=== PATIENT | male | born 1975 | race Caucasian/White ===

== ENCOUNTER 2024-02-15 20:07 | Emergency (ER) | payer SELFPAY ==
[2024-02-15 20:18] VITALS: BP 147/112
== END 2024-02-15 20:40 | disposition left against medical advice (07) ==
LOC: EMR 20:07
PROVIDERS: EMERGENCY PHYSICIAN Emergency Medicine
DX: R07.89 Other chest pain (principal); Z53.21 Procedure and treatment not carried out due to patient leaving prior to being seen by health care provider
CPT/HCPCS: 93005

== ENCOUNTER 2024-05-05 22:42 | Emergency (ER) | payer SELFPAY ==
[2024-05-05 22:46] VITALS: BP 154/110
== END 2024-05-06 01:34 | disposition left against medical advice (07) ==
LOC: EMR 22:42
PROVIDERS: EMERGENCY PHYSICIAN Emergency Medicine
DX: S61.012A Laceration without foreign body of left thumb without damage to nail, initial encounter (principal); W26.0XXA Contact with knife, initial encounter
CPT/HCPCS: 73140

== ENCOUNTER 2024-06-16 08:52 | Emergency (ER) | payer MEDICARE, SELFPAY ==
[2024-06-16] VITALS (7 sets, daily range): BP systolic 135–152; BP diastolic 94–114; BMI 30.5
--- NOTE | 2024-06-16 09:22 | EDRN ---
Alex FRANCOIS in room w/ pt.
--- NOTE | 2024-06-16 09:38 | ED.GENMED ---
History of Present Illness
General
Chief Complaint: Abdominal Symptoms
Source: patient
Time Seen by Provider: 06/16/24 09:18
History of Present Illness
History of Present Illness:
48yoM with a history of alcohol abuse presenting for evaluation of chest and abdominal discomfort. Patient reports several weeks of chest pain. He reports a central stabbing sensation that occurs about every 30-45 seconds and lasts about a second at
a time. Nothing seems to make the pain better or worse. The pain has become more severe over the past 3 days. He also reports abdominal pain and bloating primarily in the epigastric region. He states his abdomen feels very distended after eating. He
states it 'feels like something is injured inside.' His symptoms are making it difficult for him to sleep. Patient had a recent surgery on his left thumb 18 days ago and had a tendon repair. He was prescribed Vicodin which he believes may have made
his symptoms worse. Last dose was last week. He admits to daily alcohol use. He estimates drinking 8 ounces of scotch daily. Last drink yesterday afternoon. His symptoms improve temporarily while drinking alcohol. He reports feeling shaky currently.
No history of alcohol withdrawal. He expresses interest in rehab.
Phy Exam
General Physical Exam
General Presentation: well appearing and no apparent distress
General age: appears stated age
General Skin: warm and dry
General Habitus: normal
General Mental: alert
Cardiovascular Exam
Cardiovascular Exam: regular rate/rhythm, no edema and no murmur
Pulmonary Exam
Pulmonary Exam: lungs clear, no respiratory distress, no crackles and no wheezing
Gastrointestinal Exam
Gastrointestinal Exam: soft, non distended and tender (Mild tenderness in epigastrium. No rebound or guarding. )
Skin Exam
Skin Exam: normal color and warm/dry
Psychiatric Exam
Psychiatric Exam: anxious
Course
Orders/Labs/Results
Orders:
Orders
06/16/24 08:55
ECG [Electrocardiogram (*1)] Urgent
Reason for Study: Chest Pain
06/16/24 08:56
EKG- Treatment ONCE
06/16/24 09:36
Cardiac Monitoring- Treatment ONCE
0.9% Sodium Chloride 1000 ml [Nss] 1,000 ml IV BOLUS
Famotidine [Pepcid] 20 mg IV NOW STA
Ondansetron Injectable [Zofran] 4 mg IV NOW STA
Pantoprazole [Protonix IV] 40 mg IV NOW STA
06/16/24 09:37
CR Chest - 2 Views Urgent
Comment:
Reason For Exam: CP
06/16/24 10:21
Complete Blood Count/With Diff Urgent
Comprehensive Metabolic Panel Urgent
D-Dimer Urgent
Lipase Urgent
Troponin I Urgent
06/16/24 11:11
CT Pe/abd/pel W Urgent
Comment:
Reason For Exam: Chest pain, epigastric pain, elevated D-dimer
Abnormal Lab Results
06/16/24
10:21
MCH 31.7 H pg
(27.0-31.0)
Absolute Monos (auto) 0.7 H 10^3/uL
(0.1-0.6)
Monocytes % 11.2 H %
(1.7-9.3)
D-Dimer 0.80 H ug/mlFEU
(0.00-0.50)
Calcium 10.3 H mg/dl
(8.4-10.2)
Total Bilirubin 2.2 H mg/dl
(0.2-1.3)
AST 113 H U/L
(17-59)
ALT 112 H U/L
(0-50)
Lipase 372 H U/L
(23-300)
06/16/24 10:21
06/16/24 10:21
Vital Signs
Initial and Last Documented VS:
Initial Vital Signs
Temp Pulse Resp BP Pulse Ox
98.2 F 85 18 152/107 97
06/16/24 08:54 06/16/24 08:54 06/16/24 08:54 06/16/24 08:54 06/16/24 08:54
Last Documented Vital Signs
Temp Pulse Resp BP Pulse Ox
98.2 F 80 11 149/114 97
06/16/24 08:54 06/16/24 14:45 06/16/24 14:45 06/16/24 14:00 06/16/24 14:45
MDM/Problems Addressed
Differential Diagnosis Includes:
48yoM here with intermittent stabbing chest pain x several weeks that is worsening. Also having epigastric pain and abdominal bloating. Hx of daily alcohol use. He is mildly hypertensive with otherwise normal vital signs. He is acutely nontoxic
appearing. No signs of peritonitis on abdominal exam. Differential diagnosis includes but is not limited to: Esophagitis, gastritis, PUD, pancreatitis, biliary pathology, ACS, PE
Initial ED plan: Check cardiac labs, lipase, D-dimer, EKG, and chest x-ray. Will order CT AP vs. CT CAP based on D-dimer results. IV Pepid, Protonix, Zofran, and fluid bolus for symptoms.
*EKG
Interpreted by ED Provider?: Yes
EKG Intrepretation Date: 06/16/24
Heart Rate: 92
Rate: normal
Rhythm: sinus
[place]: normal axis
Interval: normal interval
QRS Pattern: normal QRS
Ischemia: no ischemia
*Critical Care Note
Total Time (30-74mins, 75-104mins- exclusive of procedures): Not Applicable
Update Note
Update Note:
Labs reveal a mild transaminitis as well as a mildly elevated lipase. Lipase 372 which is <3x ULN. Pancreas appears normal on CT. Patient does not meet diagnostic criteria for pancreatitis. D-dimer elevated and CTA chest also added which is
negative for pulmonary embolism. EKG shows normal sinus rhythm without ischemic changes and troponin is normal. [employer] product support sales representative met with patient. Patient not interested in inpatient detox/rehab at this time. Vitals remain stable, no evidence
of severe withdrawal on multiple reassessments. Patient requesting Librium taper and script was provided. Scripts also provided for pantoprazole and Carafate for possible gastritis. Advised close PCP and GI f/u. Strict ED return precautions
discussed. He was discharged in stable condition.
ED Attending Note
-
Portions of this chart may have been created with voice recognition software.� Occasional wrong word or��sound alike� substitutions may have occurred due to the inherent limitations of voice recognition software.
Discharge Plan
Departure
Patient Disposition: Home (Routine Discharge)
Date of Disposition: 06/16/24
Time of Disposition: 14:44
Patient with high blood pressure during this ER visit?: Yes
Discharge Problem:
Epigastric pain, Alcohol withdrawal
Instructions: Alcohol withdrawal, Abdominal Pain
Prescriptions:
New
sucralfate [Carafate] 1 gram tablet
1 g PO QID Qty: 40 0RF
pantoprazole 40 mg tablet,delayed release (DR/EC)
40 mg PO DAILY Qty: 30 0RF
chlordiazepoxide HCl 25 mg capsule
See Rx Instructions .ROUTE .COMPLEX Qty: 10 0RF
Rx Instructions:
Day 1: 25mg PO Q6 hours. Day 2: 25mg PO Q8 hours. Day 3: 25mg PO Q12 hours. Day 4: 25mg PO at nighttime.
Referrals:
Bruce Mehta MD [Family Provider] -
Nita Ho MD [Active] -
Activity Restrictions/Additional Instructions:
Take Librium as prescribed. Do not mix this with alcohol. Take pantoprazole and Carafate for your stomach.
Please call today to schedule a follow-up with your family doctor, gastroenterology, and the outpatient D&A resources provided.
Return to the ER immediately with any new or worsening symptoms.
Interventions
Interventions:
*Risk Screen - Suicide Last Done: 06/16/24 08:54
*General Assessment Last Done: 06/16/24 08:54
*Neglect/Abuse Screening Last Done: 06/16/24 08:54
ED- Fall Risk Assessment Last Done: 06/16/24 10:44
*ED COVID-19 Vaccine History Last Done: 06/16/24 08:54
*Nursing Disposition Last Done: 06/16/24 15:08
[id number] Assessment Last Done: 06/16/24 10:44
Discharge Date and Time
Discharge Date/Time: 06/16/24 15:08
Print Language: SPANISH
[2024-06-16] MEDS: NSS 1000 IV (10:31)
[2024-06-16] MEDS: PEPCID 20 MG IV (10:32)
[2024-06-16] MEDS: ZOFRAN 4 MG IV (10:32)
[2024-06-16] MEDS: PROTONIX IV 40 MG IV (10:32)
[2024-06-16 10:43] LABS: % Basophils 1.2 % (0-2); % Immature Granulocytes 0.3 % (0-0.5); % Lymphocytes 23.7 % (20.5-51.1); % Monocytes 11.2 % (1.7-9.3); % Neutrophils 61.6 % (42.2-75.2); Absolute Basophils 0.1 10^3/uL (0-0.2); Absolute Eosinophils 0.1 10^3/uL (0-0.7); Absolute Lymphocytes 1.4 10^3/uL (1.2-3.4); Absolute Monocytes 0.7 10^3/uL (0.1-0.6); Absolute Neutrophils 3.6 10^3/uL (1.4-6.5); Hematocrit 43.4 % (39.0-52.0); Hemoglobin 15.8 g/dL (13.0-18.0); Mean Corp Hgb Conc. 36.4 g/dL (33.0-37.0); Mean Corpuscular Hgb 31.7 pg (27.0-31.0); Mean Corpuscular Volume 87.1 fL (80.0-94.0); Mean Platelet Volume 8.3 fL (7.4-10.4); Nucleated Red Blood Cells % 0 % (-); Platelet Count 279 10^3/uL (130-400); Red Blood Cell Count 4.98 10^6/uL (4.70-6.10); White Blood Cell Count 5.9 10^3/uL (4.8-10.8)
--- NOTE | 2024-06-16 10:51 | EDRN ---
Pt is also feeling a lot of nausea at this time.
[2024-06-16 11:00] LABS: ALT (SGPT) 112 U/L (0-50); AST (SGOT) 113 U/L (17-59); Albumin 4.7 g/dl (3.5-5.0); Alkaline Phosphatase 84 U/L (38-126); Blood Urea Nitrogen 13 mg/dl (9-20); Calcium 10.3 mg/dl (8.4-10.2); Carbon Dioxide 24 mmol/L (22-30); Chloride 104 mmol/L (98-107); Estimated Creatinine Clearance > 125 ml/min; Glucose 95 mg/dl (70-99); Lipase 372 U/L (23-300); Potassium 4.1 mmol/L (3.5-5.1); Sodium 138 mmol/L (135-145); Total Bilirubin 2.2 mg/dl (0.2-1.3); Total Protein 7.5 g/dl (6.3-8.2); eGFR > 60.00
[2024-06-16 11:11] LABS: Troponin I < 0.012 ng/ml
--- NOTE | 2024-06-16 13:31 | EDRN ---
Zurdo PA in to speak w/ pt.
--- NOTE | 2024-06-16 13:54 | EDRN ---
Augustina Francicso rep in room w/pt at this time.
== END 2024-06-16 15:08 | disposition home or self-care (01) ==
LOC: EMR 08:52
PROVIDERS: Physician Assistant; EMERGENCY PHYSICIAN Emergency Medicine; FAMILY PHYSICIAN Family Medicine
DX: R07.89 Other chest pain (principal)
CPT/HCPCS: 99284; 96374; 96375; 96361; 71046; 71275; 74177; 80053; 83690; 84484; 85025; 85379; 93005; Q9967

== ENCOUNTER 2024-10-05 17:12 | Emergency (ER) | payer MEDICARE, SELFPAY ==
[2024-10-05 17:17] VITALS: BP 154/99
--- NOTE | 2024-10-05 18:24 | ED.GENMED ---
History of Present Illness
<KEN Arrieta - Last Filed: 10/05/24 20:23>
General
Chief Complaint: Alcohol Problem
Source: patient and significant other
Exam Limitations: none
Time Seen by Provider: 10/05/24 18:02
History of Present Illness
History of Present Illness:
This is a 49 year old male that comes in with c/o alcohol abuse. states that he normally drinks a bottle of Scotch daily. States that he doesn't know how he got where he is with his abuse. States that he has not been able to eat or drink as he is
vomiting. States that he has abd pain, nausea, vomiting, and he feel like he can't focus. States that he did drink a 1/2 of bottle today. Denies any fever, chills, chest pain, SOB, diarrhea, headache, dizziness, urinary burning.
Past History
<KEN Arrieta - Last Filed: 10/05/24 20:23>
Past History
ED Past Medical History: None; Negative Asthma, HTN or Hypercholesterolemia
ED Past Surgical History: Other (Hernia repair)
Social History
Tobacco: Non-smoker
Alcohol: Daily (Scotch one bottle)
Personal:
Living: with family
Review of Systems
<KEN Arrieta - Last Filed: 10/05/24 20:23>
Review of Systems
All Other Systems: ROS reviewed and negative except as documented in HPI and ROS
Constitutional: Reports no symptoms; Denies fever or chills
EENT: Reports no symptoms
Respiratory: Reports no symptoms; Denies cough or trouble breathing
Cardiac: Reports no symptoms; Denies chest pain
ABD/GI: Reports abdominal pain, nausea and vomiting; Denies diarrhea
: Reports no symptoms; Denies dysuria, frequency or urgency
Musculoskeletal: Reports no symptoms
Skin: Reports no symptoms
Neurological: Reports other (Feels like he can't focus); Denies dizzy or headache
Psychiatric: Reports no symptoms
Phy Exam
<KEN Arrieta - Last Filed: 10/05/24 20:23>
General Physical Exam
General Presentation: no apparent distress
General age: appears stated age
General Skin: warm and dry
General Habitus: normal
General Mental: alert and tearful
General Hydration: dry mucous membranes
ENT Exam
ENT Exam: TM's normal, pharynx normal, neck supple and other (tongue coated with white)
Eye Exam
Eye Exam: EOMI
Cardiovascular Exam
Cardiovascular Exam: regular rate/rhythm, no edema, no murmur and normal peripheral pulses
Pulmonary Exam
Pulmonary Exam: lungs clear, no respiratory distress, no rales, chest non tender, no crackles, no rhonchi, no wheezing and no cough
Gastrointestinal Exam
Gastrointestinal Exam: normal bowel sounds, non tender, soft, no organomegaly, no pulsatile mass and non distended
Musculoskeletal Exam
Musculoskeletal Exam: full ROM and no edema
Skin Exam
Skin Exam: normal color, warm/dry, no rash and no petechia
Psychiatric Exam
Psychiatric Exam: anxious
Scores
<KEN Arrieta - Last Filed: 10/05/24 20:23>
Withdrawal Assessment of Alcohol
Withdrawal Assessment Completed?: Yes
Nausea and Vomiting: Constant nausea, frequent dry heaves and vomiting
Tactile Disturbances: None
Tremor: Not visible, but can be felt fingertip to fingertip (Jumping occasionally)
Auditory Disturbances: Not present
Paroxysmal Sweats: No sweat visible
Visual Disturbances: Not present
Anxiety: Mild anxiety
Headache, Fullness in Head: Not present
Agitation: Normal activity
Orientation and clouding of sensorium: Oriented and can do serial additions
Total CIWA Score: 9
Alcohol Withdrawal Medication Recommendation: Equal to MSAS Score 5-7. Lorazepam 1mg IV or PO NOW & re-assess q2hrs
<Slim Cavanaugh DO - Last Filed: 10/05/24 23:14>
Withdrawal Assessment of Alcohol
Total CIWA Score: 9
Alcohol Withdrawal Medication Recommendation: Equal to MSAS Score 5-7. Lorazepam 1mg IV or PO NOW & re-assess q2hrs
Course
<KEN Arrieta - Last Filed: 10/05/24 20:23>
Orders/Labs/Results
Orders:
Orders
10/05/24 18:23
0.9% Sodium Chloride 1000 ml [Nss] 1,000 ml IV BOLUS
Lorazepam [Ativan] 0.5 mg IV NOW STA
10/05/24 18:26
Ondansetron Injectable [Zofran] 4 mg IV NOW STA
Pantoprazole [Protonix IV] 40 mg IV NOW STA
10/05/24 18:28
Alcohol Urgent
Complete Blood Count/With Diff Urgent
Comprehensive Metabolic Panel Urgent
Lipase Urgent
Abnormal Lab Results
10/05/24
18:28
MCH 32.1 H pg
(27.0-31.0)
Carbon Dioxide 20 L mmol/L
(22-30)
Total Bilirubin 1.8 H mg/dl
(0.2-1.3)
AST 152 H U/L
(17-59)
ALT 145 H U/L
(0-50)
Lipase 321 H U/L
(23-300)
10/05/24 18:28
10/05/24 18:28
carbon dioxide slightly low. Total peña and AST/ALT elevation (elevation was noted on prior labs), Lipase slightly elevated. Alcohol level 240
Vital Signs
Initial and Last Documented VS:
Initial Vital Signs
Temp Pulse Resp BP Pulse Ox
98.0 F 103 20 154/99 98
10/05/24 17:17 10/05/24 17:17 10/05/24 17:17 10/05/24 17:17 10/05/24 17:17
Last Documented Vital Signs
Temp Pulse Resp BP Pulse Ox
98.0 F 89 18 132/94 99
10/05/24 17:17 10/05/24 19:50 10/05/24 19:50 10/05/24 19:50 10/05/24 19:50
<Slim Cavanaugh, DO - Last Filed: 10/05/24 23:14>
Orders/Labs/Results
Orders:
Orders
10/05/24 18:23
0.9% Sodium Chloride 1000 ml [Nss] 1,000 ml IV BOLUS
Lorazepam [Ativan] 0.5 mg IV NOW STA
10/05/24 18:26
Ondansetron Injectable [Zofran] 4 mg IV NOW STA
Pantoprazole [Protonix IV] 40 mg IV NOW STA
10/05/24 18:28
Alcohol Urgent
Complete Blood Count/With Diff Urgent
Comprehensive Metabolic Panel Urgent
Lipase Urgent
Abnormal Lab Results
10/05/24
18:28
MCH 32.1 H pg
(27.0-31.0)
Carbon Dioxide 20 L mmol/L
(22-30)
Total Bilirubin 1.8 H mg/dl
(0.2-1.3)
AST 152 H U/L
(17-59)
ALT 145 H U/L
(0-50)
Lipase 321 H U/L
(23-300)
10/05/24 18:28
10/05/24 18:28
Vital Signs
Initial and Last Documented VS:
Initial Vital Signs
Temp Pulse Resp BP Pulse Ox
98.0 F 103 20 154/99 98
10/05/24 17:17 10/05/24 17:17 10/05/24 17:17 10/05/24 17:17 10/05/24 17:17
Last Documented Vital Signs
Temp Pulse Resp BP Pulse Ox
98.0 F 89 18 132/94 99
10/05/24 17:17 10/05/24 19:50 10/05/24 19:50 10/05/24 19:50 10/05/24 19:50
<KEN Arrieta - Last Filed: 10/05/24 20:23>
MDM/Problems Addressed
Differential Diagnosis Includes:
Alcohol abuse, Alcohol intoxication,
MDM/Problems Addressed:
This is a 49 year old male that comes in with c/o alcohol abuse. States that he wants D-tox.
Patient spoke with Ramana and they will make placement for patient at [facility]. Will check labs, Medicate for nausea and GERD, Give IV fluids
Back into see patient. Patient is much more relaxed. Spoke with Ramana and patient has been Excepted at [facility]. Will discharge patent to [facility].
Chronic conditions affecting care:
NA
Acute Exacerbation and/or Progression of Chronic Illness:
NA
<KEN Arrieta - Last Filed: 10/05/24 20:23>
*Pulse Oximetry
Patient hypoxic: no
*EKG
Interpreted by ED Provider?: NA
Rate: EKG- N/A
*[employer] Interpretation
Rate: [employer]- N/A
*Critical Care Note
Total Time (30-74mins, 75-104mins- exclusive of procedures): Not Applicable
ED Attending Note
<KEN Arrieta - Last Filed: 10/05/24 20:23>
-
Portions of this chart may have been created with voice recognition software.� Occasional wrong word or��sound alike� substitutions may have occurred due to the inherent limitations of voice recognition software.
<Slim Cavanaugh, DO - Last Filed: 10/05/24 23:14>
ED Attending Note
Patient seen and examined by attending physician: Yes
ED Attending Note:
I reviewed and agree with history treatment plan by Joanne Cox. My exam revealed 49-year-old male in no acute distress. Stable for transfer to rehab facility. Whitish area seen on tongue, suspect due to patient's vomiting. Doubt thrush.
Discharge Plan
Departure
Patient Disposition: Other
Date of Disposition: 10/05/24
Time of Disposition: 20:04
Patient with high blood pressure during this ER visit?: Yes
Condition: Good
Covid-19: Not Applicable
Discharge Problem:
Alcohol intoxication, Alcohol abuse
Instructions: Alcohol Withdrawal (DC), Alcohol Use Disorder (DC), BLOOD PRESSURE
Prescriptions:
No Action
sucralfate [Carafate] 1 gram tablet
1 g PO QID Qty: 40 0RF
pantoprazole 40 mg tablet,delayed release (DR/EC)
40 mg PO DAILY Qty: 30 0RF
chlordiazepoxide HCl 25 mg capsule
See Rx Instructions .ROUTE .COMPLEX Qty: 10 0RF
Rx Instructions:
Day 1: 25mg PO Q6 hours. Day 2: 25mg PO Q8 hours. Day 3: 25mg PO Q12 hours. Day 4: 25mg PO at nighttime.
Referrals:
Bruce Mehta MD [Family Provider] -
Activity Restrictions/Additional Instructions:
As discussed, your blood work shows that your liver enzymes and your Lipase are elevation. This should come down as you are off the alcohol. Please follow up as directed by [facility]. IF YOU HAVE ANY OTHER CONCERNS PLEASE RETURN TO THE EMERGENCY ROOM.
Interventions
Interventions:
*Risk Screen - Suicide Last Done: 10/05/24 17:17
*General Assessment Last Done: 10/05/24 17:17
*Neglect/Abuse Screening Last Done: 10/05/24 17:17
ED- Fall Risk Assessment Last Done: 10/05/24 19:16
*Nursing Disposition Last Done: 10/05/24 20:26
ED- Neurological Assessment Last Done: 10/05/24 19:16
ED-Psychological Assessment Last Done: 10/05/24 19:16
Discharge Date and Time
Discharge Date/Time: 10/05/24 20:27
Print Language: VENEZUELAN
[2024-10-05] MEDS: ATIVAN 0.5 MG IV (18:43)
[2024-10-05] MEDS: ZOFRAN 4 MG IV (18:43)
[2024-10-05] MEDS: PROTONIX IV 40 MG IV (18:43)
[2024-10-05] MEDS: NSS 1000 IV (18:44)
[2024-10-05 18:47] LABS: % Basophils 0.6 % (0-2); % Eosinophils 0.6 % (0-6); % Immature Granulocytes 0.2 % (0-0.5); % Lymphocytes 29.5 % (20.5-51.1); % Monocytes 8.6 % (1.7-9.3); % Neutrophils 60.5 % (42.2-75.2); Absolute Lymphocytes 1.5 10^3/uL (1.2-3.4); Absolute Monocytes 0.4 10^3/uL (0.1-0.6); Absolute Neutrophils 3.1 10^3/uL (1.4-6.5); Hematocrit 48.3 % (39.0-52.0); Hemoglobin 17.3 g/dL (13.0-18.0); Mean Corp Hgb Conc. 35.8 g/dL (33.0-37.0); Mean Corpuscular Hgb 32.1 pg (27.0-31.0); Mean Corpuscular Volume 89.6 fL (80.0-94.0); Nucleated Red Blood Cells % 0 % (-); Platelet Count 267 10^3/uL (130-400); Red Blood Cell Count 5.39 10^6/uL (4.70-6.10); Red Cell Dist. Width 12.9 % (11.5-14.5); White Blood Cell Count 5.1 10^3/uL (4.8-10.8)
[2024-10-05 19:08] LABS: ALT (SGPT) 145 U/L (0-50); AST (SGOT) 152 U/L (17-59); Alcohol 240 mg/dl; Alkaline Phosphatase 115 U/L (38-126); Blood Urea Nitrogen 15 mg/dl (9-20); Calcium 9.3 mg/dl (8.4-10.2); Carbon Dioxide 20 mmol/L (22-30); Chloride 99 mmol/L (98-107); Glucose 90 mg/dl (70-99); Lipase 321 U/L (23-300); Potassium 4.5 mmol/L (3.5-5.1); Sodium 141 mmol/L (135-145); Total Bilirubin 1.8 mg/dl (0.2-1.3); Total Protein 8.1 g/dl (6.3-8.2); eGFR > 60.00
[2024-10-05 19:50] VITALS: BP 132/94
== END 2024-10-05 20:27 | disposition other institution (70) ==
LOC: EMR 17:12
PROVIDERS: Clinical Nurse Specialist Family Health; EMERGENCY PHYSICIAN Emergency Medicine; FAMILY PHYSICIAN Family Medicine
DX: F10.129 Alcohol abuse with intoxication, unspecified (principal); Y90.8 Blood alcohol level of 240 mg/100 ml or more
CPT/HCPCS: 96374; 96375; 96361; 99284; 80053; 82077; 83690; 85025

== ENCOUNTER 2025-02-04 13:08 | Inpatient (IN) | payer OTHER, SELFPAY ==
--- NOTE | 2025-02-03 23:44 | ED.GENMED ---
History of Present Illness
<DO Morris Shelby Last Filed: 02/05/25 22:00>
General
Chief Complaint: Crisis Evaluation
Source: patient, significant other, family and police
Exam Limitations: none
Time Seen by Provider: 02/03/25 23:10
Nursing documentation reviewed up to this point in time: agreed with
History of Present Illness
History of Present Illness:
49-year-old male presents to the emergency department via police escort for threatening suicide. Patient admits to binge drinking for the last 2 weeks. He states he has been drinking 'a bottle per day '. Patient was complaining of chest pain and
left arm pain. Significant other states that he has been having possible absence seizure's while at home. Patient has also been hiccuping for the last few days. Patient denies fever, chills, current chest pain, current shortness of breath.
Past History
<DO Morris Shelby Last Filed: 02/05/25 22:00>
Past History
ED Past Medical History: None; Negative Asthma, HTN or Hypercholesterolemia
ED Past Surgical History: Other (Hernia repair)
Social History
Tobacco: Non-smoker
Alcohol: Daily (Scotch one bottle)
Personal:
Living: with family
Phy Exam
<DO Morris Shelby Last Filed: 02/05/25 22:00>
General Physical Exam
General Presentation: moderate distress
General age: appears stated age
General Skin: warm and dry
General Habitus: normal
General Mental: alert, angry, anxious and appears intoxicated
General Hydration: appears well hydrated
ENT Exam
ENT Exam: EOMI, pharynx normal, neck supple and normocephalic
Eye Exam
Eye Exam: PERRL, cornea clear and conjunctiva normal
Cardiovascular Exam
Cardiovascular Exam: regular rate/rhythm, no edema, no murmur and normal peripheral pulses
Pulmonary Exam
Pulmonary Exam: lungs clear, no respiratory distress, no rales, no crackles, no rhonchi, no stridor, no wheezing and no cough
Gastrointestinal Exam
Gastrointestinal Exam: normal bowel sounds, non tender, soft, no organomegaly, no pulsatile mass and non distended
Neurological Exam
Neurological Exam: alert, oriented x3, no motor deficits and speech normal
Musculoskeletal Exam
Musculoskeletal Exam: full ROM and no edema
Skin Exam
Skin Exam: normal color, warm/dry, no rash and no petechia
Psychiatric Exam
Psychiatric Exam: normal mood/affect
Course
<Nick Tolentino, DO - Last Filed: 02/05/25 22:00>
Orders/Labs/Results
Orders:
Orders
02/03/25 23:23
Alcohol Urgent
Complete Blood Count/With Diff Urgent
Comprehensive Metabolic Panel Urgent
Lipase Urgent
Comment: ADDED
Magnesium Urgent
Comment: ADD ON
Phosphorus Urgent
Comment: ADD ON
02/03/25 23:46
Electrocardiogram (*1) Urgent
Reason for Study: Chest Pain
EKG- Treatment ONCE
Troponin I Urgent
02/03/25 23:54
Lorazepam [Ativan] 1 mg IV NOW STA
02/04/25 00:17
CT Abd/pelvis W Iv Cont Urgent
Comment:
Reason For Exam: ETOH, elevated transaminase
02/04/25 00:18
Add On- LAB Urgent
Tests Added?: lipase
02/04/25 00:25
CT Head W/o Iv Contrast Urgent
Reason For Exam: seizure
02/04/25 01:18
Diphenhydramine [Benadryl] 12.5 mg IV NOW STA
Metoclopramide [Reglan] 10 mg IV NOW STA
02/04/25 01:22
0.9% Sodium Chloride 1000 ml [Nss] 1,000 ml IV BOLUS
02/04/25 02:51
Consult Notification Routine
Specialty to Notify: Psychiatry
Date consulting provider notified: 02/04/25
Time consulting provider notified: 03:05
Notified:: Provider
Consult Psychiatry [PSYCHIATRY CONSULT] Urgent
Consulting Provider: Mojgan Harley
Was physician already notified: No
Reason for consult: SI, etoh
02/04/25 05:53
Chest [CR Chest - 2 Views ] Urgent
Comment: Pt fell at home. Reports right sided tenderness.
Reason For Exam: fall
02/04/25 Breakfast
Regular
At Your Request: Non-Participating
02/04/25 06:24
Lorazepam [Ativan] 1 mg IV NOW STA
02/04/25 07:53
Lorazepam [Ativan] 2 mg IV NOW STA
02/04/25 09:52
Alcohol Urgent
02/04/25 Lunch
Regular
At Your Request: Full Participation
Does patient need a safe tray?: Yes
02/04/25 10:11
Lorazepam [Ativan] 1 mg IV Q2HPRN PRN
02/04/25 10:14
0.9% Sodium Chloride [Nss (Preservative Free)] 0.5 ml IV Q2HPRN PRN
02/04/25 11:20
0.9% Sodium Chloride 1000 ml [Nss] 1,000 ml Mvi, Adult [Multivitamin] 10 ml Thiamine Injection 100 mg IV 100 mls/hr
02/04/25 12:55
Admit/Transfer Patient As Directed
Co-Sign Provider:
Level of Care: Inpatient admission
Assign to:: Telemetry
Physician / Group: robi king
Diagnosis: etOH w/d
Reason for Telemetry: Medication for Arrhythmia
Date to Stop Telemetry: 02/06/25
Time to Stop Telemetry: 11:00
Reason for Hospitalization: etOH w/d
Expected length of stay greater than two midnights?: Yes
ELOS- Estimated Length of Stay in days: 2
I certify the patient meets the requirements for IP care: Yes
PRN Pain Medication Management As Directed
May give lesser potent ordered pain med per pt: Yes
preference::
Protocol:: Medication orders for pain may be administered in a
manner that supports deferring to patient preference
when the pt is:
- Requesting an ordered lesser potent pain medication.
Least to most potent pain medications are defined
as: acetaminophen < NSAID < tramadol < opioids
(morphine, oxycodone, hydromorphone).
- Requesting a lesser dose of the same medication IF
ORDERED.
- Requesting a less intrusive route of administration
if both routes are prescribed by the provider (PO <
IV).
02/04/25 12:56
Code Status As Directed
Resuscitation Status: Full Code
02/04/25 13:00
Add On- LAB Urgent
Tests Added?: Phos, Mg levels
02/04/25 13:13
Phenobarbital Sodium [Phenobarbital] 260 mg 0.9% Sodium Chloride 100 ml [Nss] 100 ml IV NOW
02/04/25 18:56
0.9% Sodium Chloride [Nss (Preservative Free)] See Protocol IV PRN PRN
Enoxaparin Sodium [Lovenox] 40 mg SC QPM
FOLic ACID [Folvite] 1 mg 0.9% Sodium Chloride 50 ml [Nss] 50 ml IV DAILYPRN
Lorazepam [Ativan] 1 mg IV Q1HPRN PRN
Lorazepam [Ativan] 1 mg PO Q2HPRN PRN
Lorazepam [Ativan] 2 mg IV Q1HPRN PRN
Oxycodone [Roxicodone] 5 mg PO Q4HPRN PRN
Polyethylene Glycol Powder [Miralax] 17 grams PO DAILY
02/04/25 18:56
Activity As Directed
Activity Level: Ambulate
MSAS SCORE As Directed
MSAS Score 0-4: Repeat MSAS every 2 hours until 0-4 for three consecutive assessments, then every 4 hours x 48
hours.
MSAS Score 5-7: For MILD withdrawl symptoms. Repeat MSAS and RASS every 2 hours
MSAS Score 8-11: For MODERATE withdrawal symptoms. Repeat MSAS and RASS every 1 hour. Consider ICU or IMU
level of care.
MSAS Score > 11: For SEVERE withdrawal symptoms. Repeat MSAS and RASS every 1 hour. Notify provider, consider
ICU level of care.
MSAS Additional Instructions: If no improvement or no decrease in score from severe to moderate within 12
hours, consult psychiatry
MSAS Notify Provider: Notify provider if patient requires more than 10 mg of Lorazepam in eight hour period.
Vital Signs As Directed
Frequency: Per unit guidelines
DX Deep Vein Thrombosis Video Routine
02/04/25 20:00
Thiamine Injection 200 mg IV Q12
02/04/25 22:00
Phenobarbital Sodium [Phenobarbital] 97.5 mg IV TID
02/05/25 05:51
Comprehensive Metabolic Panel IN AM
Magnesium IN AM
02/05/25 08:00
FOLic ACID [Folvite] 1 mg PO DAILY
02/06/25 06:00
Comprehensive Metabolic Panel IN AM
02/06/25 11:00
DC Protocol for Telemetry ONCE
02/06/25 22:00
Phenobarbital [Luminal] 64.8 mg PO TID
02/07/25 06:00
Comprehensive Metabolic Panel IN AM
02/07/25 20:00
Thiamine HCl [Vitamin B1] 100 mg PO BID
02/08/25 06:00
Comprehensive Metabolic Panel IN AM
02/08/25 22:00
Phenobarbital [Luminal] 32.4 mg PO TID
Abnormal Lab Results
02/03/25
23:23
MCH 32.1 H pg
(27.0-31.0)
Absolute Lymphs (auto) 1.0 L 10^3/uL
(1.2-3.4)
Lymphocytes % 17.8 L %
(20.5-51.1)
Glucose 100 H mg/dl
(70-99)
Total Bilirubin 1.9 H mg/dl
(0.2-1.3)
AST 757 H* U/L
(17-59)
ALT 320 H U/L
(0-50)
Lipase 505 H U/L
(23-300)
Alcohol, Quantitative 463 H* mg/dl
02/03/25 23:23
02/03/25 23:23
Vital Signs
Initial and Last Documented VS:
Initial Vital Signs
Pulse Resp Pulse Ox
109 17 99
02/04/25 02:47 02/04/25 02:47 02/04/25 02:47
Last Documented Vital Signs
Temp Pulse Resp BP Pulse Ox
98.9 F 86 18 136/93 98
02/05/25 19:57 02/05/25 21:33 02/05/25 19:57 02/05/25 21:33 02/05/25 19:57
<Nik Romo MD - Last Filed: 02/04/25 13:44>
Orders/Labs/Results
Orders:
Orders
02/03/25 23:23
Alcohol Urgent
Complete Blood Count/With Diff Urgent
Comprehensive Metabolic Panel Urgent
Lipase Urgent
Comment: ADDED
Magnesium Urgent
Comment: ADD ON
Phosphorus Urgent
Comment: ADD ON
02/03/25 23:46
Electrocardiogram (*1) Urgent
Reason for Study: Chest Pain
EKG- Treatment ONCE
Troponin I Urgent
02/03/25 23:54
Lorazepam [Ativan] 1 mg IV NOW STA
02/04/25 00:17
CT Abd/pelvis W Iv Cont Urgent
Comment:
Reason For Exam: ETOH, elevated transaminase
02/04/25 00:18
Add On- LAB Urgent
Tests Added?: lipase
02/04/25 00:25
CT Head W/o Iv Contrast Urgent
Reason For Exam: seizure
02/04/25 01:18
Diphenhydramine [Benadryl] 12.5 mg IV NOW STA
Metoclopramide [Reglan] 10 mg IV NOW STA
02/04/25 01:22
0.9% Sodium Chloride 1000 ml [Nss] 1,000 ml IV BOLUS
02/04/25 02:51
Consult Notification Routine
Specialty to Notify: Psychiatry
Date consulting provider notified: 02/04/25
Time consulting provider notified: 03:05
Notified:: Provider
Consult Psychiatry [PSYCHIATRY CONSULT] Urgent
Consulting Provider: Mojgan Harley
Was physician already notified: No
Reason for consult: SI, etoh
02/04/25 05:53
Chest [CR Chest - 2 Views ] Urgent
Comment: Pt fell at home. Reports right sided tenderness.
Reason For Exam: fall
02/04/25 Breakfast
Regular
At Your Request: Non-Participating
02/04/25 06:24
Lorazepam [Ativan] 1 mg IV NOW STA
02/04/25 07:53
Lorazepam [Ativan] 2 mg IV NOW STA
02/04/25 09:52
Alcohol Urgent
02/04/25 Lunch
Regular
At Your Request: Full Participation
Does patient need a safe tray?: Yes
02/04/25 10:11
Lorazepam [Ativan] 1 mg IV Q2HPRN PRN
02/04/25 10:14
0.9% Sodium Chloride [Nss (Preservative Free)] 0.5 ml IV Q2HPRN PRN
02/04/25 11:20
0.9% Sodium Chloride 1000 ml [Nss] 1,000 ml Mvi, Adult [Multivitamin] 10 ml Thiamine Injection 100 mg IV 100 mls/hr
02/04/25 12:55
Admit/Transfer Patient As Directed
Co-Sign Provider:
Level of Care: Inpatient admission
Assign to:: Telemetry
Physician / Group: robi king
Diagnosis: etOH w/d
Reason for Telemetry: Medication for Arrhythmia
Date to Stop Telemetry: 02/06/25
Time to Stop Telemetry: 11:00
Reason for Hospitalization: etOH w/d
Expected length of stay greater than two midnights?: Yes
ELOS- Estimated Length of Stay in days: 2
I certify the patient meets the requirements for IP care: Yes
PRN Pain Medication Management As Directed
May give lesser potent ordered pain med per pt: Yes
preference::
Protocol:: Medication orders for pain may be administered in a
manner that supports deferring to patient preference
when the pt is:
- Requesting an ordered lesser potent pain medication.
Least to most potent pain medications are defined
as: acetaminophen < NSAID < tramadol < opioids
(morphine, oxycodone, hydromorphone).
- Requesting a lesser dose of the same medication IF
ORDERED.
- Requesting a less intrusive route of administration
if both routes are prescribed by the provider (PO <
IV).
02/04/25 12:56
Code Status As Directed
Resuscitation Status: Full Code
02/04/25 13:00
Add On- LAB Urgent
Tests Added?: Phos, Mg levels
02/04/25 13:13
Phenobarbital Sodium [Phenobarbital] 260 mg 0.9% Sodium Chloride 100 ml [Nss] 100 ml IV NOW
02/04/25 18:56
0.9% Sodium Chloride [Nss (Preservative Free)] See Protocol IV PRN PRN
Enoxaparin Sodium [Lovenox] 40 mg SC QPM
FOLic ACID [Folvite] 1 mg 0.9% Sodium Chloride 50 ml [Nss] 50 ml IV DAILYPRN
Lorazepam [Ativan] 1 mg IV Q1HPRN PRN
Lorazepam [Ativan] 1 mg PO Q2HPRN PRN
Lorazepam [Ativan] 2 mg IV Q1HPRN PRN
Oxycodone [Roxicodone] 5 mg PO Q4HPRN PRN
Polyethylene Glycol Powder [Miralax] 17 grams PO DAILY
02/04/25 18:56
Activity As Directed
Activity Level: Ambulate
MSAS SCORE As Directed
MSAS Score 0-4: Repeat MSAS every 2 hours until 0-4 for three consecutive assessments, then every 4 hours x 48
hours.
MSAS Score 5-7: For MILD withdrawl symptoms. Repeat MSAS and RASS every 2 hours
MSAS Score 8-11: For MODERATE withdrawal symptoms. Repeat MSAS and RASS every 1 hour. Consider ICU or IMU
level of care.
MSAS Score > 11: For SEVERE withdrawal symptoms. Repeat MSAS and RASS every 1 hour. Notify provider, consider
ICU level of care.
MSAS Additional Instructions: If no improvement or no decrease in score from severe to moderate within 12
hours, consult psychiatry
MSAS Notify Provider: Notify provider if patient requires more than 10 mg of Lorazepam in eight hour period.
Vital Signs As Directed
Frequency: Per unit guidelines
DX Deep Vein Thrombosis Video Routine
02/04/25 20:00
Thiamine Injection 200 mg IV Q12
02/04/25 22:00
Phenobarbital Sodium [Phenobarbital] 97.5 mg IV TID
02/05/25 05:51
Comprehensive Metabolic Panel IN AM
Magnesium IN AM
02/05/25 08:00
FOLic ACID [Folvite] 1 mg PO DAILY
02/06/25 06:00
Comprehensive Metabolic Panel IN AM
02/06/25 11:00
DC Protocol for Telemetry ONCE
02/06/25 22:00
Phenobarbital [Luminal] 64.8 mg PO TID
02/07/25 06:00
Comprehensive Metabolic Panel IN AM
02/07/25 20:00
Thiamine HCl [Vitamin B1] 100 mg PO BID
02/08/25 06:00
Comprehensive Metabolic Panel IN AM
02/08/25 22:00
Phenobarbital [Luminal] 32.4 mg PO TID
Abnormal Lab Results
02/03/25
23:23
MCH 32.1 H pg
(27.0-31.0)
Absolute Lymphs (auto) 1.0 L 10^3/uL
(1.2-3.4)
Lymphocytes % 17.8 L %
(20.5-51.1)
Glucose 100 H mg/dl
(70-99)
Total Bilirubin 1.9 H mg/dl
(0.2-1.3)
AST 757 H* U/L
(17-59)
ALT 320 H U/L
(0-50)
Lipase 505 H U/L
(23-300)
Alcohol, Quantitative 463 H* mg/dl
02/03/25 23:23
02/03/25 23:23
Vital Signs
Initial and Last Documented VS:
Initial Vital Signs
Pulse Resp Pulse Ox
109 17 99
02/04/25 02:47 02/04/25 02:47 02/04/25 02:47
Last Documented Vital Signs
Temp Pulse Resp BP Pulse Ox
98.9 F 86 18 136/93 98
02/05/25 19:57 02/05/25 21:33 02/05/25 19:57 02/05/25 21:33 02/05/25 19:57
<Nik Romo MD - Last Filed: 02/04/25 13:44>
MDM/Problems Addressed
MDM/Problems Addressed:
Pt expressed suicidal thoughts to [facility] personnel. Pt to be evaluated by [facility] [place], who spoke with patient's fiance who will come to ED, to file 302 petition.
Pt with recurrent elevation of LFTs, due to continual alcohol use.
Pt evaluated in ED by Dr. Harley (psychiatry) who feels that patient will require further medical treatment, due to his severe tremulous symptoms, with concern for developing DTs
<Nick Tolentino DO - Last Filed: 02/05/25 22:00>
*Critical Care Note
Total Time (30-74mins, 75-104mins- exclusive of procedures): Not Applicable
<Nick Tolentino DO - Last Filed: 02/05/25 22:00>
Update Note
Update Note:
Patient's alcohol level is over 400. He must be more sober for crisis to see him.
Psychiatry consulted for the morning. Dr. Harley is on-call
[facility] consulted for the morning as well.
Dad stated that he was going to fill out a 302 to be used in case patient wants to leave. Though patient denied suicidal or homicidal ideation, intent, or plan to me, dad thinks that patient has elaborate plans to harm himself.
Update: Dad did not feel comfortable filling out a 302. There is no 302 on patient
Patient is staying in the emergency department voluntarily at this time.
CT HEAD
IMPRESSION:
No acute hemorrhage, herniation, or hydrocephalus.
No calvarial fracture.
The visualized paranasal sinuses and mastoid air cells are clear.
CT ABDOMEN/PELVIS WITH CONTRAST
IMPRESSION:
1. No acute abnormality within the abdomen or pelvis.
2. No bowel obstruction. Normal gallbladder and appendix
Incidentals:
-Small hiatal hernia
- No obstructive uropathy.
- No hepatic or pancreatic mass. Hepatic steatosis
- No abdominal aortic aneurysm.
- No acute osseous abnormality.
- No acute abnormality within the visualized lungs.
- No acute abnormality within the visualized soft tissues.
Patient is awake and able to converse. He denies suicidal or homicidal ideation, intent, or plan. He states that he is on the 'right path to sobering up '. He does wish to go to a facility
Patient to see psychiatry this morning
Patient to see [facility] this morning
ED Attending Note
<Nick Tolentino DO - Last Filed: 02/05/25 22:00>
-
Portions of this chart may have been created with voice recognition software.� Occasional wrong word or��sound alike� substitutions may have occurred due to the inherent limitations of voice recognition software.
Discharge Plan
Departure
Patient Disposition: Admit
Date of Disposition: 02/04/25
Time of Disposition: 10:44
Admit to: Telemetry
Presentation/result/management discussed w/ accepting MD/DO: Hospitalist
Patient Status:: 302
Condition: Fair
Discharge Problem:
Alcohol abuse, Alcohol withdrawal
Interventions
Interventions:
*Risk Screen - Suicide Last Done: 02/04/25 09:23
*General Assessment Last Done: 02/04/25 08:36
*Neglect/Abuse Screening Last Done: 02/03/25 22:54
*ED- Fall Risk Assessment Last Done: 02/03/25 22:54
*ED COVID-19 Vaccine History Last Done: 02/04/25 15:44
*Nursing Disposition Last Done: 02/05/25 19:39
ED-Psychological Assessment Last Done: 02/03/25 23:27
Discharge Date and Time
Discharge Date/Time: 02/05/25 19:40
[2025-02-03 23:45] LABS: % Basophils 1.3 % (0-2); % Eosinophils 0.7 % (0-6); % Immature Granulocytes 0.4 % (0-0.5); % Lymphocytes 17.8 % (20.5-51.1); % Monocytes 9.3 % (1.7-9.3); % Neutrophils 70.5 % (42.2-75.2); Absolute Basophils 0.1 10^3/uL (0-0.2); Absolute Monocytes 0.5 10^3/uL (0.1-0.6); Absolute Neutrophils 3.9 10^3/uL (1.4-6.5); Hematocrit 47.1 % (39.0-52.0); Hemoglobin 16.8 g/dL (13.0-18.0); Mean Corp Hgb Conc. 35.7 g/dL (33.0-37.0); Mean Corpuscular Hgb 32.1 pg (27.0-31.0); Mean Corpuscular Volume 89.9 fL (80.0-94.0); Mean Platelet Volume 8.5 fL (7.4-10.4); Nucleated Red Blood Cells % 0 % (-); Platelet Count 222 10^3/uL (130-400); Red Blood Cell Count 5.24 10^6/uL (4.70-6.10); Red Cell Dist. Width 13.1 % (11.5-14.5); White Blood Cell Count 5.6 10^3/uL (4.8-10.8)
[2025-02-03 23:54] LABS: ALT (SGPT) 320 U/L (0-50); Albumin 4.9 g/dl (3.5-5.0); Alkaline Phosphatase 122 U/L (38-126); Blood Urea Nitrogen 13 mg/dl (9-20); Calcium 9.5 mg/dl (8.4-10.2); Carbon Dioxide 22 mmol/L (22-30); Chloride 98 mmol/L (98-107); Glucose 100 mg/dl (70-99); Potassium 4.2 mmol/L (3.5-5.1); Sodium 142 mmol/L (135-145); Total Bilirubin 1.9 mg/dl (0.2-1.3); Total Protein 8.2 g/dl (6.3-8.2); eGFR > 60.00
[2025-02-04] VITALS (11 sets, daily range): BP systolic 111–160; BP diastolic 80–106; BMI 26.7
[2025-02-04] MEDS: ATIVAN 1 MG IV ×4 (00:03→18:04)
[2025-02-04 00:13] LABS: AST (SGOT) 757 U/L (17-59); Alcohol 463 mg/dl
[2025-02-04 00:41] LABS: Troponin I < 0.012 ng/ml
[2025-02-04 01:03] LABS: Lipase 505 U/L (23-300)
[2025-02-04] MEDS: BENADRYL 12.5 MG IV (01:57)
[2025-02-04] MEDS: NSS 1000 IV (01:57)
[2025-02-04] MEDS: REGLAN 10 MG IV ×2 (01:58→21:20)
[2025-02-04] MEDS: ATIVAN 2 MG IV (07:54)
--- NOTE | 2025-02-04 09:57 | CON.MD ---
Consultation - Medical
-
patient seen chart reviewed. family at bedside (father and partner) the patient is a 49 year old male who is brought to er by police last night w suicidal thoughts. he admitted to me that he had plan to drive his car to a deserted place and stab
himself in the chest. he is under a lot of stress job rehman, financially etc as well as family rehman as he and partner just moved in together and their blended family comprises five kids several teenagers in the mix. he sustained a bad injury last
spring when intoxicated he nearly sliced his thumb off and he struggles to work with that hand and his job is in construction. he also struggled through a bitter divorce about some years ago when he lost his business. his drinking has escalated
dramatically. when he was here in the summer w etoh related complaints of gi pain his bal was 240 .today it is 463. liver enzymes and lipase elevated cbc w macrocytosis. he is already tremulous although partner says he is always tremulous. he
recently fell and is experiencing rib pain. cxr and abd pelvic ct still pending. the patient is depressed. he has had suicidal thoughts even before recent plan as above. he struggles to sleep. re mood swings partner says he it is hard to say
because of frequency of intoxication. he was at detox once but left soon after admit. he has studiously avoided medical or psych care for most of his life. he does not enjoy much at this point. energy level is poor. at this moment he can barely
stand. he was hiccupping non stop and efforts to get him to drink while standing from the wrong side of the glass were unsuccessful as he could not stand and balance himself. he denies currently that he is suicidal but adds that the ativan made him
feel better. he received three mg of ativan since admit. vital signs 132/94 p 89 afeb.
past psych hx patient has never sought psych rx
medical hx patient denies serious medical issues but he avoids going to md. has been in er for abd sx, thumb laceration, chest pain in sep and jun 2024. dx 'etoh problem and thumb laceration ' imaging pending. elevated transaminase
macrocytosis ect w nl qtc.
substance abuse etoh see above
fh anxiety mother
social resides w partner. five kids between them. works in construction . had a very +childhood traumatic divorce three kids from that relationship see above
mse alert ox3 cooperative speech and thought process a bit slow. no psychosis mood seems depressed affect constricted see above re si denies it now aver intelligence insight judgment poor
dx etoh use d.o severe r/o underlying mood disorder
plan admit. discussed w dr castañeda. recommend phenobarb detox if hospitalist ok w current lft's as per msas consider whether need for antidep. definitely consider rehab or dual dx unit. may need to file a backup 302 if he refuses.
[2025-02-04 10:18] LABS: Alcohol 188 mg/dl
--- NOTE | 2025-02-04 12:16 | CM ---
Addendum entered by Alisa Bhagat RN 02/05/25 16:58:
CM reviewed medical records. Patient remains acutely ill at this time. CM will continue to follow as needed.
Original Note:
CM was advised by crisis that patient is now admitted. Patient currently at a back up 302 with the delegate. As per psychiatry, 302 will need to be called in if patient attempts to leave.
CM will remain available as needed.
--- NOTE | 2025-02-04 12:27 | HPS.HSE ---
Family Physician
-
Family Physician: KEN Ferrell
Chief Complaint
-
Suicidal ideation, alcohol withdrawal
History of Present Illness
49-year-old male with a past medical history of alcohol abuse with dependency and hepatic steatosis initially presented to the emergency department via police escort for suicidal ideation. Patient and report that patient started drinking
heavily 10 days ago, 1 bottle of scotch per day for the past 10 days. Last drink was 7 PM on 02/03/2025. Significant other states that he may be having absence seizures at home. Patient reports intermittent blurry vision at home as well, resolved
currently. Psychiatry was consulted for suicidal ideation. He had planned to drive his car to a deserted place and stab himself in the chest. Patient has been having some life stressors. He was seen by psychiatry, who recommends admission for
alcohol withdrawal, then treatment at psychiatric facility.
Currently he complains of right-sided rib pain, from falling from the bed. Denies chest pain, denies shortness of breath. He is hiccuping. No fever. He was vomiting, now resolved. Reports no bowel movement in 6 days, states he has not eaten
much either.
Medical History
Past Medical History
Past Medical History: Reports Other
Additional Past Medical History:
Alcohol abuse with dependency
Severe hepatic steatosis
Hepatomegaly
Hiatal hernia
Thumb laceration
Past Surgical History: Reports Other
Additional Past Surgical History:
Hernia repair
Social History
Tobacco: Non-smoker
Alcohol: Daily (1 bottle of scotch)
Drug: None
Living: Other (Lives with ann marie�, has 5 kids between them. Works in construction.)
Family History
Family History: Not pertinent
Allergies / Home Medications
Allergies reflects when Allergies were last updated in [email or web address].
Home Medications with original date entered in [facility]
Allergy/Medication List:
Allergies
Allergy/AdvReac Type Severity Reaction Status Date / Time
No Known Allergies Allergy Verified 10/05/24 17:20
Home Medications Table - record
�Medication �Instructions �Recorded �Confirmed
No Meds [No Current Medications] 02/04/25 02/04/25
Review of Systems
-
A 12 point ROS was completed and negative except as noted: Yes
Physical Exam
Vital Signs
Vital Signs
Temp Pulse Resp BP Pulse Ox
98.7 F 101 18 139/85 96
02/04/25 05:12 02/04/25 07:55 02/04/25 05:12 02/04/25 07:55 02/04/25 07:55
Physical Exam
General: Other (Appears to not feel well, no acute distress)
HEENT: NormoCephalic, Anicteric and Moist mucous membranes
Respiratory: Clear
Cardiac: S1/S2 and Regular Rhythm
GI: Soft, Non Tender, Non Distended and Normal Bowel Sounds
Musculoskeletal: No Clubbing, No Cyanosis and No Edema
Skin: Warm and Dry
Neuro: Awake, Alert, Oriented and Tremors
Psych: Calm
Laboratory Results
-
02/03/25 23:23
02/03/25 23:23
Laboratory Results
Total Bilirubin 1.9 mg/dl (0.2-1.3) H 02/03/25 23:23
AST 757 U/L (17-59) H* 02/03/25 23:23
ALT 320 U/L (0-50) H 02/03/25 23:23
Alkaline Phosphatase 122 U/L (38-126) 02/03/25 23:23
Troponin I < 0.012 ng/ml 02/04/25 00:02
Lipase 505 U/L (23-300) H 02/03/25 23:23
Impression/Plan
-
49-year-old male with a past medical history of alcohol abuse with dependency and hepatic steatosis initially presented to the emergency department via police escort for suicidal ideation. Patient and report that patient started drinking
heavily 10 days ago, 1 bottle of scotch per day for the past 10 days. Last drink was 7 PM on 02/03/2025. Significant other states that he may be having absence seizures at home. Patient reports intermittent blurry vision at home as well, resolved
currently. Psychiatry was consulted for suicidal ideation. He had planned to drive his car to a deserted place and stab himself in the chest. Patient has been having some life stressors. He was seen by psychiatry, who recommends admission for
alcohol withdrawal, then treatment at psychiatric facility.
Currently he complains of right-sided rib pain, from falling from the bed. Denies chest pain, denies shortness of breath. He is hiccuping. No fever. He was vomiting, now resolved. Reports no bowel movement in 6 days, states he has not eaten
much either.
#Alcohol abuse, intoxication, withdrawal
Alcohol cessation counseling has been provided
Phenobarbital taper, MSAS protocol, thiamine, folic acid
#Suicidal ideation with plan
Psychiatry following
Recommend inpatient psychiatric treatment upon discharge
Would need backup 302 if patient refuses
#Alcoholic hepatitis
Alcohol cessation counseling has been provided as above
Trend LFTs
#Severe alcoholic steatosis
Outpatient follow-up
#Falling out of bed
#Right-sided rib pain
X-rays negative
Lidocaine patch
#Mildly elevated lipase
Vomiting resolved, denies abdominal pain
Inform patient that he is at risk for pancreatitis if he drinks again
DVT prophylaxis�subcu Lovenox
Full code
Updated fianc� at bedside 02/04
Total time spent to see the patient on the floor, examine the patient, review data and lab results, discuss treatment plan with patient, nursing staff around 79 minutes.
[2025-02-04] MEDS: MULTIVITAMIN 1011 MG IV (12:35)
[2025-02-04] MEDS: MULTIVITAMIN 1011 ML IV (12:35)
[2025-02-04 13:40] LABS: Magnesium 1.8 mg/dl (1.6-2.3); Phosphorus 4.2 mg/dl (2.5-4.5)
[2025-02-04] MEDS: PHENOBARBITAL 104 MG IV (13:51)
[2025-02-04] MEDS: MIRALAX 17 GRAMS PO (20:00)
[2025-02-04] MEDS: LIDOCAINE 4% PATCH 1 PATCH TOPICAL (20:06)
[2025-02-04] MEDS: THIAMINE INJECTION 200 MG IV (20:07)
[2025-02-04] MEDS: LOVENOX 40 MG SC (20:12)
[2025-02-04] MEDS: ATIVAN 1 MG PO (20:23)
[2025-02-04] MEDS: PHENOBARBITAL 97.5 MG IV (22:18)
[2025-02-05] VITALS (13 sets, daily range): BP systolic 120–153; BP diastolic 74–107; BMI 26.7; BMI 26.4
[2025-02-05] MEDS: ATIVAN 1 MG PO ×3 (00:35→12:46)
[2025-02-05] MEDS: ROXICODONE 5 MG PO ×3 (00:43→15:30)
[2025-02-05 06:42] LABS: ALT (SGPT) 202 U/L (0-50); AST (SGOT) 314 U/L (17-59); Albumin 4.2 g/dl (3.5-5.0); Alkaline Phosphatase 83 U/L (38-126); Blood Urea Nitrogen 9 mg/dl (9-20); Calcium 9.7 mg/dl (8.4-10.2); Carbon Dioxide 27 mmol/L (22-30); Chloride 98 mmol/L (98-107); Estimated Creatinine Clearance > 125 ml/min; Glucose 121 mg/dl (70-99); Magnesium 1.5 mg/dl (1.6-2.3); Potassium 3.7 mmol/L (3.5-5.1); Sodium 137 mmol/L (135-145); Total Bilirubin 2.6 mg/dl (0.2-1.3); Total Protein 6.8 g/dl (6.3-8.2); eGFR > 60.00
[2025-02-05] MEDS: MIRALAX 17 GRAMS PO (07:59)
[2025-02-05] MEDS: LIDOCAINE 4% PATCH 1 PATCH TOPICAL (07:59)
--- NOTE | 2025-02-05 08:00 | PTCARENOTE ---
nursing admission obtained. pt denied any thoughts of suicidal ideation or intention at this time.
[2025-02-05] MEDS: PHENOBARBITAL 97.5 MG IV ×3 (08:01→22:13)
[2025-02-05] MEDS: THIAMINE INJECTION 200 MG IV ×2 (08:02→21:33)
[2025-02-05] MEDS: FOLVITE 1 MG PO (08:02)
[2025-02-05] MEDS: ATIVAN 1 MG IV (08:19)
--- NOTE | 2025-02-05 08:46 | W.PN.HOSP.TC ---
Today's Communication/Plan
-
see bold
Assessment / Plan
Assessment / Plan
49-year-old male with a past medical history of alcohol abuse with dependency and hepatic steatosis initially presented to the emergency department via police escort for suicidal ideation. Patient and report that patient started drinking
heavily 10 days ago, 1 bottle of scotch per day for the past 10 days. Last drink was 7 PM on 02/03/2025. Significant other states that he may be having absence seizures at home. Patient reports intermittent blurry vision at home as well, resolved
currently. Psychiatry was consulted for suicidal ideation. He had planned to drive his car to a deserted place and stab himself in the chest. Patient has been having some life stressors. He was seen by psychiatry, who recommends admission for
alcohol withdrawal, then treatment at psychiatric facility.
#Alcohol abuse, intoxication, withdrawal
Alcohol cessation counseling has been provided
Phenobarbital taper, MSAS protocol, thiamine, folic acid
#Suicidal ideation with plan
Psychiatry following
Recommend inpatient psychiatric treatment upon discharge
Would need backup 302 if patient refuses
#Hiccups
#Nausea
Trial of Compazine, Reglan, Benadryl as needed
#Alcoholic hepatitis
Alcohol cessation counseling has been provided as above
Trend LFTs
#Severe alcoholic steatosis
Outpatient follow-up
#Falling out of bed
#Right-sided rib pain
X-rays negative
Lidocaine patch
#Mildly elevated lipase
Denies abdominal pain
Inform patient that he is at risk for pancreatitis if he drinks again
DVT prophylaxis�subcu Lovenox
Full code
Updated fianc� at bedside 02/04
Total time spent to see the patient on the floor, examine the patient, review data and lab results, discuss treatment plan with patient, nursing staff around 50 minutes.
Physical Exam
General: Appears disheveled, no acute distress
HEENT: Normocephalic, Atraumatic, EOMI, MMM
Respiratory: Clear to Auscultation bilaterally
Cardiac: Normal S1/S2, Regular Rate and Rhythm
GI: Soft, Nontender, Nondistended, Normal Bowel Sounds
Extremities: No Clubbing, Cyanosis, or Edema
Neuro: Bilateral hand tremors noted
Psych: Calm, Cooperative
Anticipated Discharge: 24 - 48 hours
Subjective/Interval History
-
Date of Service: February 05, 2025
Patient complains of nausea and the hiccups. No vomiting. Continues to have tremors. No fever. Denies suicidal ideation currently.
Objective Data
-
Labs:
Laboratory Results
02/05/25
05:51
Sodium 137
Potassium 3.7
Chloride 98
Carbon Dioxide 27
BUN 9
Creatinine 0.7
Glucose 121 H
Calcium 9.7
Total Bilirubin 2.6 H
AST 314 H
ALT 202 H
Alkaline Phosphatase 83
Vital Signs:
Vital Signs
Temp Pulse Resp BP Pulse Ox
98.7 F 100 34 140/102 95
02/05/25 05:00 02/05/25 06:15 02/05/25 06:15 02/05/25 06:00 02/05/25 05:45
[2025-02-05] MEDS: MAGNESIUM SULFATE 50 IV (09:44)
[2025-02-05] MEDS: BENADRYL 50 MG PO (11:36)
[2025-02-05] MEDS: CATAPRES 0.1 MG PO ×3 (11:36→21:33)
[2025-02-05] MEDS: REGLAN 10 MG PO (11:36)
--- NOTE | 2025-02-05 12:24 | W.PN.UPDATE ---
Update Note
Progress Note Update
patient seen chart reviewed. discussed w nursing . patient complaining of chest pain. there is no radiation. when asked where he points to the area of the sternal notch. obtained ecg and had it reviewed by dr reed who felt no acute changes . bp
is on the high said. he is not short of breath but he continues to hiccup w some frequency. he is a bit sweaty and s/w tremulous. ativan as per msas asked nursing to review now and use ativan liberally. . he has received several doses today.
phenobarb detox continues. attempting to plant the seed with patient that he should definitely go to in pt rehab. he asked me 'i have to stay here another night'. pointed out that he would be here likely several nights . he said he has no interest
in etoh. i told him that he feels that way right now but that will change and he will be tempted to drink again and sobriety will only happen with a plan and strong intent the latter will wobble for sure. we do have a 302 backup given his previous
utterances re suicidality. at this point he is denying suicidal thoughts and we have dc'ed one to one.
[2025-02-05] MEDS: LOVENOX 40 MG SC (18:02)
--- NOTE | 2025-02-05 19:30 | PTCARENOTE ---
Patient transferred to unit from ED via stretcher. Patient A&Ox3. Ambulated from stretcher to bed. Oriented to unit. Call light within reach. Care ongoing.
[2025-02-05] MEDS: COMPAZINE 10 MG IV (21:47)
[2025-02-06] VITALS (7 sets, daily range): BP systolic 101–140; BP diastolic 65–98
[2025-02-06] MEDS: ROXICODONE 5 MG PO ×2 (05:13→12:22)
[2025-02-06 06:43] LABS: ALT (SGPT) 162 U/L (0-50); AST (SGOT) 183 U/L (17-59); Alkaline Phosphatase 86 U/L (38-126); Blood Urea Nitrogen 9 mg/dl (9-20); Calcium 9.7 mg/dl (8.4-10.2); Carbon Dioxide 31 mmol/L (22-30); Chloride 96 mmol/L (98-107); Estimated Creatinine Clearance > 125 ml/min; Glucose 80 mg/dl (70-99); Magnesium 1.9 mg/dl (1.6-2.3); Potassium 3.9 mmol/L (3.5-5.1); Sodium 137 mmol/L (135-145); Total Bilirubin 2.4 mg/dl (0.2-1.3); Total Protein 6.9 g/dl (6.3-8.2); eGFR > 60.00
--- NOTE | 2025-02-06 07:30 | W.PN.HOSP.TC ---
Today's Communication/Plan
-
Discharge to psychiatric facility when bed available
Assessment / Plan
Assessment / Plan
49-year-old male with a past medical history of alcohol abuse with dependency and hepatic steatosis initially presented to the emergency department via police escort for suicidal ideation. Patient and report that patient started drinking
heavily 10 days ago, 1 bottle of scotch per day for the past 10 days. Last drink was 7 PM on 02/03/2025. Significant other states that he may be having absence seizures at home. Patient reports intermittent blurry vision at home as well, resolved
currently. Psychiatry was consulted for suicidal ideation. He had planned to drive his car to a deserted place and stab himself in the chest. Patient has been having some life stressors. He was seen by psychiatry, who recommends admission for
alcohol withdrawal, then treatment at psychiatric facility.
#Alcohol abuse, intoxication, withdrawal
Alcohol cessation counseling has been provided
Phenobarbital taper, MSAS protocol, thiamine, folic acid
#Suicidal ideation with plan
Psychiatry following
Recommend inpatient psychiatric treatment upon discharge
Would need backup 302 if patient refuses
#Hiccups
#Nausea
Trial of Compazine, Reglan, Benadryl as needed
#Hypomagnesemia
#Alcoholic hepatitis
Alcohol cessation counseling has been provided as above
Trend LFTs
#Severe alcoholic steatosis
Informed patient and his of this diagnosis
Outpatient follow-up
#Falling out of bed
#Right-sided rib pain
X-rays negative
Lidocaine patch
#Mildly elevated lipase
Denies abdominal pain
Inform patient that he is at risk for pancreatitis if he drinks again
DVT prophylaxis�subcu Lovenox
Full code
Updated fianc� at bedside 02/05
Total time spent to see the patient on the floor, examine the patient, review data and lab results, discuss treatment plan with patient, nursing staff around 51 minutes.
Physical Exam
General: Appears disheveled, no acute distress
HEENT: Normocephalic, Atraumatic, EOMI, MMM
Respiratory: Clear to Auscultation bilaterally
Cardiac: Normal S1/S2, Regular Rate and Rhythm
GI: Soft, Nontender, Nondistended, Normal Bowel Sounds
Extremities: No Clubbing, Cyanosis, or Edema
Neuro: Bilateral hand tremors noted
Psych: Calm, Cooperative
Anticipated Discharge: Within 24 hours
Subjective/Interval History
-
Date of Service: February 06, 2025
Patient reports improvement in his tremors. His hiccups are minimally improved. Continues to complain of right sided rib pain. No fever, no vomiting.
Objective Data
-
Labs:
Laboratory Results
02/06/25
05:34
Sodium 137
Potassium 3.9
Chloride 96 L
Carbon Dioxide 31 H
BUN 9
Creatinine 0.6 L
Glucose 80
Calcium 9.7
Total Bilirubin 2.4 H
AST 183 H
ALT 162 H
Alkaline Phosphatase 86
Vital Signs:
Vital Signs
Temp Pulse Resp BP Pulse Ox
98.5 F 87 17 118/86 98
02/06/25 07:27 02/06/25 07:27 02/06/25 07:27 02/06/25 07:27 02/06/25 07:27
I&O
02/05/25 02/06/25 02/07/25
06:59 06:59 06:59
Intake Total 480 / 960 480 / 480
Balance 480 / 960 480 / 480
[2025-02-06] MEDS: LIDOCAINE 4% PATCH 1 PATCH TOPICAL (08:16)
[2025-02-06] MEDS: THIAMINE INJECTION 200 MG IV ×2 (08:17→21:23)
[2025-02-06] MEDS: MIRALAX 17 GRAMS PO (08:17)
[2025-02-06] MEDS: CATAPRES PO (08:17)
[2025-02-06] MEDS: FOLVITE 1 MG PO (08:17)
[2025-02-06] MEDS: PHENOBARBITAL 97.5 MG IV ×2 (08:18→15:09)
--- NOTE | 2025-02-06 09:23 | PN.CDI ---
CDI
- -
CDI:
Physician Documentation Request
Admit Date: 02/04/25 13:08
Dear Doctor Do,
Please review the following and provide your response in the progress notes.
Clinical Indicators:
- 02/05 2 gram IV magnesium sulfate given
Laboratory Tests
02/03/25 02/05/25 02/06/25
23:23 05:51 05:34
Magnesium 1.8 1.5 L 1.9
Please provide a diagnosis for the above lab values that were monitored and treatment rendered:
Hypomagnesemia
Clinically insignificant abnormal lab value
Ohter (please specify)
Use of terms such as suspected, likely, concern for, or probable (associated with a specific diagnosis that is being evaluated, monitored, or treated as if it exists) are acceptable and can be coded in the inpatient setting, when documented at the
time of discharge.
Thank you,
Isela Palmer RN
CDI Specialist
Please use your independent medical judgment in providing your response.
--- NOTE | 2025-02-06 12:50 | W.PN.UPDATE ---
Update Note
Progress Note Update
patient seen chart reviewed. discussed with nursing and with dr king. the patient was initially refusing rehab. after much discussion about the importance of his going to rehab to develop a plan for sobriety and how to implement said plan, he did
agree. his had arranged [facility]. that is a very good program and i would recommend [facility] be pursued. he continues on phenobarb taper. would use alternative for rib pain instead of an opiate as rehab will not accept an opiate.
the patient said his objection to rehab was not wanting to leave his kids. reassured him that his kids will do fine w him in rehab especially if that means is chances for sobriety are enhanced.
[2025-02-06] MEDS: CATAPRES 0.1 MG PO (15:10)
--- NOTE | 2025-02-06 15:28 | CM ---
Initial assessment completed
Met with pt at bedside
Reports he lives with his girlfriend and their 5 children (ages 11-15) in a 2 story town home; [address], 12 steps to 2[address]
Independent, employed, drives
DME - none
SNF/HH - no past hx
PCP - Aurelia Adams
Pharm - [facility]
Pt met with Charli Boles today. [facility] to follow for rehab placement
Plan - anticipate alcohol rehab placement when medically ready
[2025-02-06] MEDS: TORADOL 30 MG IV (17:21)
--- NOTE | 2025-02-06 18:14 | PTCARENOTE ---
Pt's girlfriend approached this RN in the hallway saying that pt was writhing in pain. pt diaphoretic and complaining of 10/10 pain in R-sided mid torso 'under ribs.' Pt says that this it worse than it was before and seems to be radiating to his
back. BP 101/65. HR 98. 98.2F. 98% RA. 17 RR. made aware. One time dose toradol ordered and administered to pt. saw pt and father @bedside. Pt now asleep in room. Call castro within reach. Will continue to monitor.
[2025-02-06] MEDS: LUMINAL 64.8 MG PO (21:22)
[2025-02-07] MEDS: ROXICODONE 5 MG PO (03:34)
[2025-02-07 03:38] VITALS: BP 129/89
[2025-02-07 07:05] VITALS: BP 129/88
[2025-02-07 07:14] LABS: ALT (SGPT) 141 U/L (0-50); AST (SGOT) 118 U/L (17-59); Albumin 4.1 g/dl (3.5-5.0); Alkaline Phosphatase 91 U/L (38-126); Blood Urea Nitrogen 12 mg/dl (9-20); Calcium 9.7 mg/dl (8.4-10.2); Carbon Dioxide 27 mmol/L (22-30); Chloride 98 mmol/L (98-107); Estimated Creatinine Clearance > 125 ml/min; Glucose 91 mg/dl (70-99); Potassium 3.9 mmol/L (3.5-5.1); Sodium 135 mmol/L (135-145); Total Bilirubin 1.7 mg/dl (0.2-1.3); Total Protein 6.9 g/dl (6.3-8.2); eGFR > 60.00
[2025-02-07 08:05] LABS: Hematocrit 40.5 % (39.0-52.0); Hemoglobin 14.3 g/dL (13.0-18.0); Mean Corp Hgb Conc. 35.3 g/dL (33.0-37.0); Mean Corpuscular Hgb 32.1 pg (27.0-31.0); Red Blood Cell Count 4.45 10^6/uL (4.70-6.10); Red Cell Dist. Width 12.5 % (11.5-14.5); White Blood Cell Count 5.8 10^3/uL (4.8-10.8)
[2025-02-07] MEDS: LIDOCAINE 4% PATCH 1 PATCH TOPICAL (08:19)
[2025-02-07] MEDS: FOLVITE 1 MG PO (08:20)
[2025-02-07] MEDS: LUMINAL 64.8 MG PO ×2 (08:20→15:25)
[2025-02-07] MEDS: MIRALAX 17 GRAMS PO (08:21)
[2025-02-07] MEDS: THIAMINE INJECTION 200 MG IV (08:21)
--- NOTE | 2025-02-07 08:44 | W.PN.HOSP.TC ---
Today's Communication/Plan
-
Medically stable for discharge to psychiatric facility today, awaiting bed
Assessment / Plan
Assessment / Plan
49-year-old male with a past medical history of alcohol abuse with dependency and hepatic steatosis initially presented to the emergency department via police escort for suicidal ideation. Patient and report that patient started drinking
heavily 10 days ago, 1 bottle of scotch per day for the past 10 days. Last drink was 7 PM on 02/03/2025. Significant other states that he may be having absence seizures at home. Patient reports intermittent blurry vision at home as well, resolved
currently. Psychiatry was consulted for suicidal ideation. He had planned to drive his car to a deserted place and stab himself in the chest. Patient has been having some life stressors. He was seen by psychiatry, who recommends admission for
alcohol withdrawal, then treatment at psychiatric facility.
#Alcohol abuse, intoxication, withdrawal
Alcohol cessation counseling has been provided
Phenobarbital taper, MSAS protocol, thiamine, folic acid
Medically stable for discharge to psychiatric facility today, awaiting bed
#Suicidal ideation with plan
Psychiatry following
Recommend inpatient psychiatric treatment upon discharge
Would need backup 302 if patient refuses
#Hiccups
#Nausea
Trial of Compazine, Reglan, Benadryl as needed
#Hypomagnesemia
Repleted and resolved
#Alcoholic hepatitis
Alcohol cessation counseling has been provided as above
Trend LFTs
#Severe alcoholic steatosis
Informed patient and his of this diagnosis
Outpatient follow-up
#Falling out of bed
#Right-sided rib pain
X-rays negative
Lidocaine patch, oxycodone as needed, Toradol as needed
#Mildly elevated lipase
Denies abdominal pain
Inform patient that he is at risk for pancreatitis if he drinks again
#Heartburn
Tums as needed
DVT prophylaxis�subcu Lovenox
Full code
Updated fianc� on phone 02/06
Updated father at bedside 02/06
Total time spent to see the patient on the floor, examine the patient, review data and lab results, discuss treatment plan with patient, nursing staff around 41 minutes.
Physical Exam
General: Appears disheveled, no acute distress
HEENT: Normocephalic, Atraumatic, EOMI, MMM
Respiratory: Clear to Auscultation bilaterally
Cardiac: Normal S1/S2, Regular Rate and Rhythm
GI: Soft, Nontender, Nondistended, Normal Bowel Sounds
Extremities: No Clubbing, Cyanosis, or Edema
Neuro: Bilateral hand tremors noted
Psych: Calm, Cooperative
Anticipated Discharge: Within 24 hours
Subjective/Interval History
-
Date of Service: February 06, 2025
His right sided rib pain is improving. Complains of heartburn today. Tremors mild. No fever, no vomiting.
Objective Data
-
Labs:
Laboratory Results
02/06/25
05:34
Sodium 137
Potassium 3.9
Chloride 96 L
Carbon Dioxide 31 H
BUN 9
Creatinine 0.6 L
Glucose 80
Calcium 9.7
Total Bilirubin 2.4 H
AST 183 H
ALT 162 H
Alkaline Phosphatase 86
Vital Signs:
Vital Signs
Temp Pulse Resp BP Pulse Ox
98.1 F 99 18 133/92 99
02/06/25 15:13 02/06/25 15:13 02/06/25 15:13 02/06/25 15:13 02/06/25 15:13
I&O
02/05/25 02/06/25 02/07/25
06:59 06:59 06:59
Intake Total 480 / 960 480 / 480
Balance 480 / 960 480 / 480
[2025-02-07] MEDS: TUMS CHEWABLE TABLET 400 MG PO (09:23)
[2025-02-07 11:03] VITALS: BP 126/92
[2025-02-07] MEDS: ATIVAN 1 MG IV (12:28)
--- NOTE | 2025-02-07 12:35 | W.DCSUMMARY ---
Discharge Summary
Discharge Data
Date of Admission: 02/04/25
Date of Discharge: 02/07/25
-
Pending Results: No
Hospital Course
Discharge diagnosis:
Alcohol abuse, intoxication, with dependency and withdrawal
Suicidal ideation with plan
Hiccups
Nausea
Hypomagnesemia
Alcoholic hepatitis
Severe hepatic steatosis
Falling out of bed
Right-sided rib contusion/pain
Mildly elevated lipase
Heartburn
Consults: Psychiatry
CT abdomen and pelvis:
No acute pathology of the abdomen or pelvis identified.
Severe hepatic fatty infiltration. Stable
Mild hepatomegaly. Mildly progressed
Too small to characterize hypodense left renal lesion likely a benign cyst. Stable
Small hiatal hernia. New.
Chest x-ray:
1. Clear lungs.
2. No significant change compared to prior study
Hospital course:
49-year-old male with a past medical history of alcohol abuse with dependency and hepatic steatosis was admitted for acute alcohol intoxication with withdrawal. Patient also was brought in by police for having suicidal ideation with a plan of
driving his car to a deserted place and stabbing himself in the chest. Patient was seen in conjunction with psychiatry, who recommends admission for alcohol withdrawal, then treatment at psychiatric facility. He was treated with a phenobarbital
taper, as well as IV Ativan.
Patient also reports rolling out of bed prior to admission, and having right rib pain. CT of the abdomen and pelvis did not show any rib fractures, chest x-ray also negative for rib fractures. He was treated with lidocaine patch, oxycodone, and IV
Toradol. Patient was informed that rib contusions can be extremely painful, and may take weeks to heal. He will be discharged on lidocaine patch and ibuprofen as needed for his pain.
Patient was also found to have severe hepatic fatty infiltration. He also had alcoholic hepatitis upon admission. His LFTs were trended, and improved. Patient and his were informed of his severe hepatic fatty infiltration. He has been
counseled to abstain from drinking alcohol.
After several days, his alcohol withdrawal improved dramatically. He is medically stable for discharge to psychiatric facility for further treatment. He will be discharged on phenobarbital 32.4 mg 3 times a day for 2 more days. He needs to
follow-up with his primary care doctor 1 week after he leaves rehab.
Disposition: Psychiatric facility
Discharge planning: Required 41 minutes
Discharge Plan
-
Patient Disposition: Psych Facility
Discharge Diagnosis/Procedures: Alcohol intoxication/dependency with withdrawal, alcoholic hepatitis, severe fatty liver, right lower anterior rib contusion from fall
Condition: Fair
Diet: Regular
Activity: As tolerated
Activity Restrictions/Additional Instructions:
May continue phenobarbital for 2 more days.
It is very important that you permanently abstain from drinking alcohol.
Recommend you follow-up with GI in the office for your fatty liver.
Follow-up with your primary care provider 1 week after you leave rehab.
Referrals:
Aurelia Adams CRNP [Family Provider] - in one week
Harpreet Welch DO [Active] - in three to four weeks
Prescriptions:
New
folic acid 1 mg Tablet
1 mg PO DAILY Qty: 0 0RF
lidocaine 4 % Adhesive Patch,Medicated
1 patch topical DAILY Qty: 0 0RF
calcium carbonate [Calcium Antacid] 200 mg calcium (500 mg) Tablet,Chewable
400 mg PO Q4HPRN PRN (Reason: heartburn) Qty: 0 0RF
thiamine mononitrate (vit B1) 100 mg Tablet
100 mg PO BID Qty: 0 0RF
ibuprofen 800 mg tablet
800 mg PO Q8H PRN (Reason: Pain) Qty: 30 0RF
phenobarbital 32.4 mg Tablet
32.4 mg PO TID 2 Days Qty: 6 0RF
Discharge Orders:
Discharge Patient (As Directed); Ordered 02/07/25
Ordered By: Roman Palmer
Discharge Date and Time
Print Language: SERBIAN
[2025-02-07] MEDS: COMPAZINE 10 MG IV (12:38)
--- NOTE | 2025-02-07 12:39 | CM ---
Recieved call from Zev/LINDA that he is working on getting pt into the [facility] and requested clinical be faxed to [phone], did so. Anticipate likely for today if clinically accepted.
--- NOTE | 2025-02-07 14:55 | CM ---
Recieved call from Zev/LINDA that pt has been accepted to [facility] and that Dad in room is able to drive pt to facility. Team made aware.
[2025-02-07 15:05] VITALS: BP 137/96
== END 2025-02-07 15:38 | DRG 897 ==
LOC: 3 WEST ACU 13:08
PROVIDERS: Emergency Medicine; ADMITTING PHYSICIAN Family Medicine; CONSULT PHYSICIAN Psychiatry & Neurology Psychiatry; EMERGENCY PHYSICIAN Student in an Organized Health Care Education/Training Program; FAMILY PHYSICIAN Nurse Practitioner Family
DX: F10.129 Alcohol abuse with intoxication, unspecified (principal); R45.851 Suicidal ideations; E83.42 Hypomagnesemia; K70.10 Alcoholic hepatitis without ascites; K76.0 Fatty (change of) liver, not elsewhere classified; W06.XXXA Fall from bed, initial encounter; S20.219A Contusion of unspecified front wall of thorax, initial encounter; K44.9 Diaphragmatic hernia without obstruction or gangrene; N28.1 Cyst of kidney, acquired; R06.6 Hiccough
CPT/HCPCS: 70450; 71046; 74177; 80053; 82077; 83690; 83735; 84100; 84484; 85025; 85027; 93005; 96361; 96374; 96375; 96376; 99285; Q9967

== ENCOUNTER 2025-04-28 14:43 | Inpatient (IN) | payer OTHER, SELFPAY ==
[2025-04-28] VITALS (10 sets, daily range): BP systolic 130–171; BP diastolic 81–95; BMI 29.0
--- NOTE | 2025-04-28 09:22 | ED.GENMED ---
History of Present Illness
General
Chief Complaint: Alcohol Problem
Time Seen by Provider: 04/28/25 09:22
History of Present Illness
History of Present Illness:
TIME OF INITIAL EVALUATION
- 9:30 AM
REVIEW OF OLD RECORDS
- The patient has a history of alcohol abuse and was admitted here in January 2025 and at that time was suicidal and was on phenobarbital taper and Ativan.
CHIEF COMPLAINT(S)
Alcohol consumption relapse.
HISTORY OF PRESENT ILLNESS
The patient is a 49-year-old male with a history of alcohol use disorder, previously admitted to the hospital back in January. It appears that the patient had achieved a period of abstinence, spanning approximately 75 days, after attending a
rehabilitation program. However, the patient reports a recent relapse, drinking heavily for the past two days. The patient stated, 'I was happy. Yeah. Okay. I was like, I could have a drink.' This initiated his current episode of alcohol use. He
mentioned drinking lightly today, consuming only a small amount of alcohol. The patient reported symptoms suggestive of withdrawal, stating, 'I can't function. Like I cant be there. Like I cant be there from my time. Its a weird thing.' Vital signs
did not reveal tachycardia, as the patient described feeling a heart rate of around 90 beats per minute and no current suicidal ideations. Despite the relapse, the patient does not report additional medical symptoms at this time. He is actively
engaged in ongoing psychiatric care, attending sessions regularly, and reported feeling content with his progress.
CHRONIC MEDICAL CONDITIONS SIGNIFICANTLY AFFECTING CARE
Alcohol use disorder.
SOCIAL DETERMINANTS AFFECTING HEALTH
Alcohol consumption relapse.
SOCIAL HISTORY
The patient has a significant history of alcohol use disorder, with recent relapse after a 75-day period of abstinence.
PHYSICAL EXAM
- General: The patient appears tearful
- HEENT: Moist oral mucosa
- Cardiovascular: No murmurs, borderline tachycardic heart rate, regular rhythm, No chest wall tenderness
- Pulmonary: No respiratory distress, breath sounds are clear and equal
- Abdomen: Soft with no peritoneal signs, no tenderness
- Neurologic: Excellent strength all extremities, no coordination deficits
- Psychiatric: Appears tearful and upset, calls himself 'a loser'
- Extremities: Nontender, no edema, moves all extremities equally
- Skin: No rash, no lesions
PLAN
1. Engage [facility] team for further evaluation and support.
2. Obtain blood work to assess current status.
3. Provide intravenous fluids for rehydration.
4. Administer non-narcotic anti-inflammatory medication if necessary for pain management.
5. Monitor for signs of alcohol withdrawal, and consider medication such as Ativan if the patient�s heart rate increases significantly or other withdrawal symptoms worsen.
6. Give Zofran and Ativan
DIFFERENTIAL DIAGNOSIS
The Differential Diagnosis includes, in no particular order and is not limited to:
1. Alcohol intoxication.
2. Alcohol withdrawal syndrome.
3. Depression.
4. Anxiety disorder.
5. Post-acute withdrawal syndrome.
6. Substance-induced mood disorder.
7. Adjustment disorder.
8. Bipolar disorder.
9. Insomnia.
10. Nutritional deficiencies.
RADIOLOGY
- Not indicated
EKG
- Not indicated
LABS
- CBC normal, bicarb only 15�he was given IV fluids x 2 L, total bili again elevated but similar to prior, alcohol level 233
UPDATE
- At 9:35 AM, I spoke to Zev from [facility] who will evaluate the patient later today as he is currently not in-house. At 9:40 AM, I spoke to Desirae and asked for crisis consult
- 11:29 AM, I spoke to Zev who states the patient does already have outpatient resources and patient will check in with Zev every few days and he did provide him with a a sponsorship. Also still awaiting crisis consultation
DIAGNOSIS
- Alcohol use disorder (ICD-10: F10.20)
SUMMARY OF ENCOUNTER
The patient, a 49-year-old male with a history of alcohol use disorder, presented following a recent relapse and heavy alcohol consumption over the past two days. During this period, his blood alcohol level was noted to be significantly elevated in
the 200s, or approximately 0.2%. Despite this, he reported having only light alcohol consumption on the day of the visit. The patient expressed concerns regarding withdrawal symptoms and described a peculiar sensation of being unable to function.
Previous treatments included a tapering regimen of phenobarbital pills, though benzodiazepines like Ativan were suggested as possible alternatives for current withdrawal management. The patients care was facilitated by consultations with crisis
intervention and communication with other healthcare providers.
PLAN
1. Engage the [facility] team for further evaluation and support.
2. Obtain blood work to evaluate current status.
3. Administer intravenous fluids for rehydration.
4. Consider non-narcotic anti-inflammatory medication if necessary for pain management.
5. Monitor for signs of alcohol withdrawal, administer potential medication such as Ativan for increased heart rate or worsening symptoms.
MEDICATION RECONCILIATION
1. Past prescription mentioned: Phenobarbital pills (tapered regimen: three pills initially, then reduced).
MEDICAL DECISION MAKING
Number and Complexity of Problems Addressed:
- The patients presentation included acute and chronic concerns related to alcohol use disorder.
Data:
- Alcohol level was high, indicating acute intoxication. Potential medication adjustments or interventions, such as benzodiazepines, were considered.
Risk:
- Care plan was influenced by the patients recent alcohol relapse, which affected social determinants of health. Potential hospital admission due to severe withdrawal was considered, along with the need for prescription drug management and IV fluids.
Just prior to planned discharge, patient now tells me that he absolutely cannot go home like this. He feels that he will be going through withdrawal that he cannot tolerate at home. I talked to Dr. Jerome who accepts for further management in
the hospital. The patient also stated that he does not tolerate naltrexone due to GI side effects.
Past History
Past History
ED Past Medical History: None; Negative Asthma, HTN or Hypercholesterolemia
ED Past Surgical History: Other (Hernia repair)
Social History
Tobacco: Non-smoker
Alcohol: Daily (Scotch one bottle)
Personal:
Living: with family
Phy Exam
Physical Exam
Physical Exam:
See HPI
Scores
Withdrawal Assessment of Alcohol
Withdrawal Assessment Completed?: Not applicable
Course
Orders/Labs/Results
Orders:
Orders
04/28/25 09:35
Alcohol Urgent
Complete Blood Count/With Diff Urgent
Comprehensive Metabolic Panel Urgent
Lipase Urgent
Magnesium Urgent
04/28/25 09:40
Crisis Consult Urgent
Reason for Consult: depression
04/28/25 09:43
0.9% Sodium Chloride 1000 ml [Nss] 1,000 ml IV BOLUS
04/28/25 09:44
Lorazepam [Ativan] 1 mg IV NOW STA
Ondansetron Injectable [Zofran] 4 mg IV NOW STA
04/28/25 09:45
0.9% Sodium Chloride 1000 ml [Nss] 1,000 ml IV BOLUS
04/28/25 11:30
0.9% Sodium Chloride 1000 ml [Nss] 1,000 ml IV BOLUS
Abnormal Lab Results
04/28/25
09:35
Carbon Dioxide 15 L mmol/L
(22-30)
Total Bilirubin 2.3 H mg/dl
(0.2-1.3)
Alkaline Phosphatase 128 H U/L
(38-126)
Total Protein 8.4 H g/dl
(6.3-8.2)
Albumin 5.1 H g/dl
(3.5-5.0)
04/28/25 09:35
04/28/25 09:35
Vital Signs
Initial and Last Documented VS:
Initial Vital Signs
Temp Pulse Resp BP Pulse Ox
36.9 C 110 18 171/91 97
04/28/25 09:09 04/28/25 09:09 04/28/25 09:09 04/28/25 09:09 04/28/25 09:09
Last Documented Vital Signs
Temp Pulse Resp BP Pulse Ox
36.9 C 93 15 144/84 99
04/28/25 09:09 04/28/25 12:30 04/28/25 12:15 04/28/25 12:00 04/28/25 12:30
*Pulse Oximetry
Patient hypoxic: no (97% room air-normal)
*Mail Sorting Supervisor Interpretation
Rate: normal
Interpretation: normal
Heart Rate: 90
Rhythm: sinus
*Critical Care Note
Total Time (30-74mins, 75-104mins- exclusive of procedures): Not Applicable
ED Attending Note
-
Portions of this chart may have been created with voice recognition software.� Occasional wrong word or��sound alike� substitutions may have occurred due to the inherent limitations of voice recognition software.
Discharge Plan
Departure
Patient Disposition: Admit
Date of Disposition: 04/28/25
Time of Disposition: 12:39
Presentation/result/management discussed w/ accepting MD/DO: Hospitalist
Patient with high blood pressure during this ER visit?: Yes
Discharge Problem:
Alcohol use disorder
Instructions: Alcohol Use Disorder (DC)
Prescriptions:
No Action
trazodone 50 mg tablet
100 mg PO HSPRN PRN (Reason: insomnia)
cetirizine [Zyrtec] 10 mg Tablet
10 mg PO DAILY PRN (Reason: allergies)
naltrexone 50 mg tablet
50 mg PO DAILY
propranolol 10 mg tablet
10 mg PO TID
escitalopram oxalate 10 mg tablet
10 mg PO DAILY
Referrals:
NONE,* [Family Provider, Internal Medicine]
Interventions
Interventions:
*Risk Screen - Suicide Last Done: 04/28/25 09:09
*General Assessment Last Done: 04/28/25 09:09
*Neglect/Abuse Screening Last Done: 04/28/25 09:09
*ED- Fall Risk Assessment Last Done: 04/28/25 09:39
ED- Neurological Assessment Last Done: 04/28/25 09:37
ED-Psychological Assessment Last Done: 04/28/25 09:38
Discharge Date and Time
Print Language: TUNISIAN
[2025-04-28 09:44] LABS: % Basophils 0.9 % (0-2); % Eosinophils 0.7 % (0-6); % Immature Granulocytes 0.2 % (0-0.5); % Monocytes 4.9 % (1.7-9.3); % Neutrophils 58.3 % (42.2-75.2); Absolute Basophils 0.1 10^3/uL (0-0.2); Absolute Eosinophils 0.1 10^3/uL (0-0.7); Absolute Lymphocytes 3.3 10^3/uL (1.2-3.4); Absolute Monocytes 0.5 10^3/uL (0.1-0.6); Absolute Neutrophils 5.5 10^3/uL (1.4-6.5); Hematocrit 45.6 % (39.0-52.0); Hemoglobin 15.9 g/dL (13.0-18.0); Mean Corp Hgb Conc. 34.9 g/dL (33.0-37.0); Mean Corpuscular Hgb 30.8 pg (27.0-31.0); Mean Corpuscular Volume 88.4 fL (80.0-94.0); Mean Platelet Volume 8.1 fL (7.4-10.4); Nucleated Red Blood Cells % 0 % (-); Platelet Count 389 10^3/uL (130-400); Red Blood Cell Count 5.16 10^6/uL (4.70-6.10); Red Cell Dist. Width 12.6 % (11.5-14.5); White Blood Cell Count 9.5 10^3/uL (4.8-10.8)
[2025-04-28] MEDS: ATIVAN 1 MG IV (09:48)
[2025-04-28] MEDS: NSS 1000 IV ×3 (09:48→15:58)
[2025-04-28] MEDS: ZOFRAN 4 MG IV (09:49)
[2025-04-28 09:59] LABS: ALT (SGPT) 29 U/L (0-50); AST (SGOT) 39 U/L (17-59); Albumin 5.1 g/dl (3.5-5.0); Alcohol 233 mg/dl; Alkaline Phosphatase 128 U/L (38-126); Blood Urea Nitrogen 14 mg/dl (9-20); Calcium 9.6 mg/dl (8.4-10.2); Carbon Dioxide 15 mmol/L (22-30); Chloride 107 mmol/L (98-107); Glucose 72 mg/dl (70-99); Lipase 146 U/L (23-300); Magnesium 1.7 mg/dl (1.6-2.3); Potassium 4.5 mmol/L (3.5-5.1); Sodium 143 mmol/L (135-145); Total Bilirubin 2.3 mg/dl (0.2-1.3); Total Protein 8.4 g/dl (6.3-8.2); eGFR > 60.00
--- NOTE | 2025-04-28 14:00 | HPS.HSE ---
Family Physician
-
Family Physician: * NONE
Chief Complaint
-
alcohol abuse
History of Present Illness
49-year-old male with a history of alcohol use disorder presented to us with alcohol withdrawal. patient stopped going to [facility] this week and stopped taking medication for anxiety last week due to the unpleasant side effects. he is complaining of
being anxious. he is having stabbing pain in his chest and he is nauseous. he drank 3 bottles of vodka, and tequila in 2 days. his last drink was today morning. he has not drink since the discharge from here until two days ago. denied CLARK,dizzy or
syncope.denied fever, chills, sob. denied abdominal pain or diarrhea. denied dysuria or hematuria.
Admitted for further management. Patient received her lorazepam, normal saline and Zofran in ER. Admitted for further management. patient was evaluated by crisis. patient concern for withdrawal.
Medical History
Past Medical History
Past Medical History: Reports Other
Additional Past Medical History:
Insomnia
Anxiety
Alcohol abuse
Hypertension
Past Surgical History: Reports Other
Additional Past Surgical History:
Thumb surgery
Social History
Alcohol: Daily
Drug: None
Personal: Partner
Living: With Family
Employment: Employed
Family History
Family History: Not pertinent
Allergies / Home Medications
Allergies reflects when Allergies were last updated in [employer].
Home Medications with original date entered in [employer]
Allergy/Medication List:
Allergies
Allergy/AdvReac Type Severity Reaction Status Date / Time
No Known Allergies Allergy Verified 04/28/25 09:09
Home Medications
cetirizine 10 mg tablet (Zyrtec) 10 mg PO DAILY PRN allergies 04/28/25
escitalopram oxalate 10 mg tablet 10 mg PO DAILY 04/28/25
naltrexone 50 mg tablet 50 mg PO DAILY alcohol use disorder 04/28/25
propranolol 10 mg tablet 10 mg PO TID 04/28/25
trazodone 50 mg tablet 100 mg PO HSPRN PRN insomnia 04/28/25
Review of Systems
-
Constitutional: Reports No Symptoms
EENT: Reports No Symptoms
Respiratory: Reports No Symptoms
Cardiac: Reports Chest Pain
Abdomen/GI: Reports Nausea
: Reports No Symptoms
Musculoskeletal: Reports No Symptoms
Skin: Reports No Symptoms
Neurological: Reports No Symptoms
Endocrine: Reports No Symptoms
Hematologic/Lymphatic: Reports No Symptoms
Psych: Reports No Symptoms
Physical Exam
Vital Signs
Vital Signs
Temp Pulse Resp BP Pulse Ox
98.4 F 93 15 144/84 99
04/28/25 09:09 04/28/25 12:30 04/28/25 12:15 04/28/25 12:00 04/28/25 12:30
Physical Exam
General: Well Developed, Well Nourished and No Apparent Distress
HEENT: NormoCephalic, Moist mucous membranes and Atraumatic
Respiratory: Clear
Cardiac: S1/S2 and Regular Rhythm; No Murmur or Rub
GI: Soft, Non Tender, Non Distended and Normal Bowel Sounds; No Organomegaly
Rectal: Deferred by Provider
Musculoskeletal: No Clubbing, No Cyanosis and No Edema
Skin: No Rash
Neuro: AO x 3 and Nonfocal/grossly intact
Psych: Calm
Laboratory Results
-
04/28/25 09:35
04/28/25 09:35
Laboratory Results
Total Bilirubin 2.3 mg/dl (0.2-1.3) H 04/28/25 09:35
AST 39 U/L (17-59) 04/28/25 09:35
ALT 29 U/L (0-50) 04/28/25 09:35
Alkaline Phosphatase 128 U/L (38-126) H 04/28/25 09:35
Lipase 146 U/L (23-300) 04/28/25 09:35
Data Reviewed
-
Lab Data: Labs Reviewed by me
Impression/Plan
-
# Alcohol use disorder
- Alcohol protocol initiated
-initiated on phenobarbital protocol
- Case management consulted
#chest pain likely GERD
-will obtain EKG
-IV PPI
# Metabolic acidosis likely dehydration
- Normal saline continue
# History of anxiety
-hold escitalopram as he is not taking
#DVT prophylaxis
- Lovenox
# CODE STATUS
- Full code
--- NOTE | 2025-04-28 14:30 | W.PN.UPDATE ---
Update Note
Progress Note Update
This is an addendum to the H&P written by she was sent on 04/28/2025. Patient seen and examined independently with BOAT DOCK OPERATOR.
49-year-old male past medical history of anxiety, alcohol use disorder, alcoholic hepatitis, hepatic steatosis, presenting with alcohol use resumed 2 days ago after period of abstinence. Last drink this morning. Patient concerned that he will have
severe withdrawal symptoms. Complaining of chest pain and nausea and abdominal pain.
Labs unremarkable.
Patient with alcohol withdrawal. Start alcohol withdrawal protocol, phenobarbital protocol, thiamine and folate. IV fluids.
Chest pain and abdominal pain likely due to acid reflux and gastritis. Protonix. Check EKG.
Patient was seen by Poonam ruth and lizzeth. Not interested in rehab and wants to follow-up with AA.
--- NOTE | 2025-04-28 15:35 | PTCARENOTE ---
Received pt from ED via stretcher. AAOX3, tremors, anxious. Pt ambulated to bed with standby assist. Assessed and oriented to room. Pt verbalized understanding of call castro. Call castro within close reach. Will continue to monitor.
[2025-04-28] MEDS: PROTONIX IV 40 MG IV (15:58)
[2025-04-28] MEDS: ATIVAN 1 MG PO (15:58)
[2025-04-28] MEDS: INDERAL 10 MG PO ×2 (16:00→22:45)
[2025-04-28] MEDS: PHENOBARBITAL 104 MG IV (16:08)
[2025-04-28] MEDS: LOVENOX 40 MG SC (17:16)
[2025-04-28 17:21] LABS: INR 1.12; PT 14.7 Sec (11.4-14.6)
[2025-04-28 17:22] LABS: APTT 25.2 Sec (23.4-35.0)
[2025-04-28 17:25] LABS: GGTP 70 U/L (15-73); Magnesium 1.6 mg/dl (1.6-2.3); Phosphorus 3.8 mg/dl (2.5-4.5)
--- NOTE | 2025-04-28 18:31 | PTCARENOTE ---
Pt c/o mouth soreness and pain in the roof of his mouth while eating. Mouth assessed, tongue appears pink with white. MD made aware.
[2025-04-28] MEDS: TYLENOL 650 MG PO (19:15)
[2025-04-28] MEDS: THIAMINE INJECTION 200 MG IV (21:13)
[2025-04-28] MEDS: CARAFATE SUSPENSION 1 GM PO (21:25)
[2025-04-28] MEDS: ANESTHETIC LOZENGE 1 LOZENGE PO (21:28)
[2025-04-28] MEDS: PHENOBARBITAL 97.5 MG IV (22:45)
[2025-04-28 23:59] LABS: Urine Albumin 1+ (Neg - Trace); Urine Bilirubin Negative (Negative); Urine Character Clear (Clear); Urine Color Amber; Urine Glucose Negative (Negative); Urine Ketone 3+ (Negative); Urine Leukocyte Negative (Negative); Urine Nitrite Negative (Negative); Urine Occult Blood Negative (Negative); Urine Urobilinogen Negative (Neg - 1+)
[2025-04-29 00:05] LABS: Amphetamines Negative (Negative); Barbiturates Positive (Negative); Benzodiazepines Positive (Negative); Buprenorphine Negative (Negative); Cocaine Negative (Negative); Marijuana Negative (Negative); Methadone Negative (Negative); Methamphetamines Negative (Negative); Opiates Negative (Negative); Phencyclidine Negative (Negative); Tricyclic Antidepressants Negative (Negative)
[2025-04-29 00:16] LABS: Urine Bacteria Few (Negative); Urine White Cell 0-2 /HPF (0-5)
[2025-04-29 00:19] LABS: Fentanyl, Urine Negative (Negative)
[2025-04-29 03:00] VITALS: BP 123/85
--- NOTE | 2025-04-29 04:19 | DOWNTIME ---
Addendum entered by Gala Escamilla RN 04/29/25 14:10:
Correction to downtime 04/29/2025 from 0100 to 04/29/25 at 0415.
Original Note:
There was a [employer] Downtime on 04/28/2025 from 0100 to 04/29/2025 at 0415. Downtime documentation of patient's care, including medication administrations, has been reconciled in the electronic record per guidelines. Refer to the
patient's paper chart under the miscellaneous tab to see printed paper medication records and downtime forms.
[2025-04-29] MEDS: NSS 1000 IV ×2 (06:00→16:42)
[2025-04-29] MEDS: TYLENOL 650 MG PO (06:16)
[2025-04-29 07:00] VITALS: BP 161/78
[2025-04-29] MEDS: THIAMINE INJECTION 200 MG IV ×2 (07:16→20:42)
[2025-04-29] MEDS: ATIVAN 1 MG PO (07:16)
[2025-04-29] MEDS: INDERAL 10 MG PO ×3 (07:16→22:15)
[2025-04-29] MEDS: PHENOBARBITAL 97.5 MG IV ×3 (07:16→22:16)
[2025-04-29] MEDS: PROTONIX IV 40 MG IV (07:16)
[2025-04-29] MEDS: FOLVITE 1 MG PO (07:16)
[2025-04-29] MEDS: NSS (PRESERVATIVE FREE) 10 ML IV (07:16)
[2025-04-29 07:57] LABS: Blood Urea Nitrogen 14 mg/dl (9-20); Calcium 8.9 mg/dl (8.4-10.2); Carbon Dioxide 25 mmol/L (22-30); Chloride 104 mmol/L (98-107); Estimated Creatinine Clearance 110 ml/min; Glucose 94 mg/dl (70-99); Sodium 136 mmol/L (135-145); eGFR > 60.00
[2025-04-29] MEDS: ZOFRAN 4 MG IV (08:19)
--- NOTE | 2025-04-29 09:40 | PTCARENOTE ---
pt aaox3. diaphoretic, states he is nauseous and anxious. wanting these bad feelings to go away or he just wants to go home. ativan given as ordered. made aware of nausea and zofran ordered. pt now resting
--- NOTE | 2025-04-29 10:20 | CM ---
Patient seen at bedside with significant other Trinity
IA Completed
Dx: Alcohol withdrawal
CM consult completed-substance abuse counseling
states Zev from [facility] following-LM with Zev
Lives with significant other in a 2 story home, no ALYSSA, flight to bed/bath
PLOF: independent, Denies DME
Denies VN-Patient, states inpatient in Aprril at [facility], currently in Intensive Outpatient Rehab at [facility] in [place] & plans to continue
PCP: [facility]
Pharmacy: [facility]
PLAN: Home, return to intensive outpatient Rehab at [facility] in [place], [facility] following
significant other/father to transport
[2025-04-29 10:58] VITALS: BP 127/84
--- NOTE | 2025-04-29 13:09 | W.PN.HOSP.TC ---
Today's Communication/Plan
-
etoh withdrawal protocol
trops
Assessment / Plan
Assessment / Plan
Physical Exam
General: Well Developed, Well Nourished and No Apparent Distress
HEENT: NormoCephalic, Moist mucous membranes and Atraumatic
Respiratory: Clear
Cardiac: S1/S2 and Regular Rhythm; No Murmur or Rub
GI: Soft, Non Tender, Non Distended and Normal Bowel Sounds; No Organomegaly
Rectal: Deferred by Provider
Musculoskeletal: No Clubbing, No Cyanosis and No Edema
Skin: No Rash
Neuro: AO x 3 and Nonfocal/grossly intact
Psych: Calm
# Alcohol use disorder
- Alcohol protocol initiated
-initiated on phenobarbital protocol
- Case management consulted
#chest pain likely GERD
-resolved
-will obtain EKG
-IV PPI
# Metabolic acidosis
-likely related to elevated BhB
- resolved with resuscitation
# History of anxiety
-hold escitalopram as he is not taking
#DVT prophylaxis
- Lovenox
# CODE STATUS
- Full code
Anticipated Discharge: Within 24 hours
Subjective/Interval History
-
Date of Service: April 29, 2025
no acute events
Objective Data
-
Labs:
Laboratory Results
04/29/25
06:32
Sodium 136
Potassium 4.0
Chloride 104
Carbon Dioxide 25
BUN 14
Creatinine 0.9
Glucose 94
Calcium 8.9
Vital Signs:
Vital Signs
Temp Pulse Resp BP Pulse Ox
98.2 F 67 19 127/84 98
04/29/25 10:58 04/29/25 10:58 04/29/25 10:58 04/29/25 10:58 04/29/25 10:58
I&O
04/28/25 04/29/25 04/30/25
06:59 06:59 06:59
Intake Total 480 / 480
Balance 480 / 480
Review of Systems
-
History Source: Patient
All other systems: Reviewed and negative
Data Reviewed
-
Labs: Labs Reviewed by me
[2025-04-29 14:08] LABS: Troponin I < 0.012 ng/ml
[2025-04-29 15:00] VITALS: BP 131/88
[2025-04-29] MEDS: LOVENOX 40 MG SC (18:28)
[2025-04-29 19:00] VITALS: BP 133/82
[2025-04-29 21:51] LABS: Troponin I < 0.012 ng/ml
[2025-04-29] MEDS: MELATONIN 5 MG PO (22:15)
[2025-04-29 23:02] VITALS: BP 121/79
[2025-04-30 03:08] VITALS: BP 141/90
[2025-04-30 07:04] LABS: Troponin I < 0.012 ng/ml
[2025-04-30] MEDS: INDERAL 10 MG PO (07:41)
[2025-04-30] MEDS: PROTONIX IV 40 MG IV (07:41)
[2025-04-30] MEDS: NSS (PRESERVATIVE FREE) 10 ML IV (07:41)
[2025-04-30] MEDS: FOLVITE 1 MG PO (07:41)
[2025-04-30] MEDS: PHENOBARBITAL 97.5 MG IV (07:42)
[2025-04-30] MEDS: THIAMINE INJECTION 200 MG IV (07:42)
--- NOTE | 2025-04-30 07:43 | PN.CDI ---
CDI
- -
CDI:
Physician Documentation Request
Admit Date: 04/28/25 14:43
Dear Doctor Rocio,
Clinical Indicators:
04/28 H & P, '...history of alcohol use disorder.. stopped going to AA this week...patient concern for withdrawal.'
MSAS scores: 1-7
Ativan 1mg x 3 doses.
04/28 PN, 'Alcohol use disorder-initiated on phenobarbital protocol'
If possible, please provide further specificity as outlined below:
Alcohol use disorder with withdrawal
Alcohol use disorder with dependence and withdrawal
Alcohol use disorder only
Other, please specify
Use of terms such as suspected, likely, concern for, or probable (associated with a specific diagnosis that is being evaluated, monitored, or treated as if it exists) are acceptable and can be coded in the inpatient setting, when documented at the
time of discharge.
Thank you,
ISRAEL Gant RN
CDI Specialist
available via tiger text
Please use your independent medical judgment in providing your response.
[2025-04-30 07:51] LABS: Blood Urea Nitrogen 10 mg/dl (9-20); Calcium 9.3 mg/dl (8.4-10.2); Carbon Dioxide 30 mmol/L (22-30); Chloride 104 mmol/L (98-107); Estimated Creatinine Clearance 110 ml/min; Glucose 101 mg/dl (70-99); Potassium 4.1 mmol/L (3.5-5.1); Sodium 139 mmol/L (135-145); eGFR > 60.00
[2025-04-30 08:00] VITALS: BP 130/87
--- NOTE | 2025-04-30 09:24 | CM ---
Patient seen at bedside
tt hospitalist
CM spoke with Zev from [facility] who is following the patient
Patient has Zev's phone number, states may visit before dc today
states Intensive outpatient rehab set up with [facility] in [place], AA meetings
PLAN: Home, return to intensive outpatient Rehab at [facility] in [place], [facility] following
significant other to transport
[2025-04-30 11:30] VITALS: BP 128/92
--- NOTE | 2025-04-30 12:01 | W.PN.HOSP.TC ---
Addendum entered and electronically signed by Kvng Chan MD 04/30/25 17:06:
Alcohol use disorder with dependence and withdrawal
Addendum entered and electronically signed by Kvng Chan MD 04/30/25 16:56:
[id number]
Original Note:
Today's Communication/Plan
-
etoh cessation, outpatient facility
Assessment / Plan
Assessment / Plan
Physical Exam
General: Well Developed, Well Nourished and No Apparent Distress
HEENT: NormoCephalic, Moist mucous membranes and Atraumatic
Respiratory: Clear
Cardiac: S1/S2 and Regular Rhythm; No Murmur or Rub
GI: Soft, Non Tender, Non Distended and Normal Bowel Sounds; No Organomegaly
Rectal: Deferred by Provider
Musculoskeletal: No Clubbing, No Cyanosis and No Edema
Skin: No Rash
Neuro: AO x 3 and Nonfocal/grossly intact
Psych: Calm
# Alcohol use disorder
- Alcohol protocol initiated
-initiated on phenobarbital protocol
- Case management consulted
-will go to facility after dc for EtOh cessation
#chest pain likely GERD
-resolved
-will obtain EKG
-IV PPI
-trops neg
# Metabolic acidosis
-likely related to elevated BhB
- resolved with resuscitation
# History of anxiety
can resume lexapro
#DVT prophylaxis
- Lovenox
# CODE STATUS
- Full code
More than 30 minutes spent in discharge including
Final examination of the patient
Summarizing hospital stay
Instructions for continuing care to all relevant caregivers
Preparation of discharge records, prescriptions, and referral forms
Total time spent (in minutes): 37
Anticipated Discharge: Today
Subjective/Interval History
-
Date of Service: April 30, 2025
No acute events, patient wants to leave
Objective Data
-
Labs:
Laboratory Results
04/30/25
06:30
Sodium 139
Potassium 4.1
Chloride 104
Carbon Dioxide 30
BUN 10
Creatinine 0.9
Glucose 101 H
Calcium 9.3
Vital Signs:
Vital Signs
Temp Pulse Resp BP Pulse Ox
98.1 F 70 16 130/87 100
04/30/25 08:00 04/30/25 08:00 04/30/25 08:00 04/30/25 08:00 04/30/25 08:00
I&O
04/29/25 04/30/25 05/01/25
06:59 06:59 06:59
Intake Total 480 / 480 1680 / 1680
Balance 480 / 480 1680 / 1680
Review of Systems
-
History Source: Patient
All other systems: Not reviewed unless documented
Data Reviewed
-
Labs: Labs Reviewed by me
--- NOTE | 2025-04-30 12:05 | W.DS.TRANS ---
DC Summary - Applications Project Manager
-
Discharge Instructions:
Discharge Diagnosis/Procedures # Alcohol use disorder
Diet Low Cholesterol
Activity As tolerated
Blood Work cbc and cmp in 3-5 days
Instructions:
Stand-Alone Forms:
Changes to Home Medications: No
Discharge Medications:
DC Medications w/original date entered in [employer]
cetirizine 10 mg tablet (Zyrtec) 10 mg PO DAILY PRN allergies 04/28/25
escitalopram oxalate 10 mg tablet 10 mg PO DAILY depression/anxiety 04/28/25
naltrexone 50 mg tablet 50 mg PO DAILY alcohol use disorder 04/28/25
propranolol 10 mg tablet 10 mg PO TID alcohol use disorder 04/28/25
trazodone 50 mg tablet 100 mg PO HSPRN PRN insomnia 04/28/25
Home Medication Changes
na
Pending Results: No
== END 2025-04-30 12:08 | disposition home or self-care (01) | DRG 897 ==
LOC: 3 WEST ACU 14:43
PROVIDERS: Registered Nurse; ADMITTING PHYSICIAN Hospitalist; ATTENDING PHYSICIAN Internal Medicine; EMERGENCY PHYSICIAN Emergency Medicine
DX: F10.239 Alcohol dependence with withdrawal, unspecified (principal); E87.20 Acidosis, unspecified; F41.9 Anxiety disorder, unspecified; F32.A Depression, unspecified; G47.00 Insomnia, unspecified; I10 Essential (primary) hypertension; R07.9 Chest pain, unspecified
CPT/HCPCS: 80048; 80053; 80306; 80307; 81003; 81015; 82010; 82077; 82977; 83690; 83735; 84100; 84484; 85025; 85610; 85730; 93005; 96361; 96374; 96375; 99284

== ENCOUNTER 2025-06-25 20:44 | Emergency (ER) | payer OTHER, SELFPAY ==
[2025-06-25 20:55] VITALS: BP 145/95
--- NOTE | 2025-06-25 23:27 | ED.GENMED ---
History of Present Illness
General
Chief Complaint: Alcohol Problem
Source: patient
Time Seen by Provider: 06/25/25 20:50
History of Present Illness
History of Present Illness:
Note:
CHIEF COMPLAINT(S)
Alcohol intoxication.
HISTORY OF PRESENT ILLNESS
The patient is a 49-year-old male who presents with concerns related to excessive alcohol consumption. He reports drinking daily and expresses feelings of self-deprecation regarding his drinking habits. The patient indicates that he attended
Alcoholics Anonymous (AA) in January, which he found beneficial at the time, but he has since resumed drinking approximately a couple of months ago. He mentions no falls or injuries related to his alcohol use. The patient expresses interest in
attending rehab but does not have immediate plans. He resides with his girlfriend, who might be available to pick him up. The patient understands the need for change and acknowledges his role in making those changes.
PHYSICAL EXAM
CONSTITUTIONAL Patient alert and oriented to person, place and time. Appears intoxicated. Vital signs reviewed.
HEAD atraumatic, normocephalic.
EYES eyelids normal to inspection, Extraocular muscles intact, Conjunctiva normal, Sclera normal.
NECK normal range of motion, Trachea midline, no jugular venous distention.
RESPIRATORY CHEST No respiratory distress noted, Chest expansion equal, Bilateral breath sounds clear.
CARDIOVASCULAR regular rate and rhythm, Heart sounds normal.
ABDOMEN abdomen nontender, Bowel sounds normal. No distention.
BACK normal inspection, no obvious deformities
UPPER EXTREMITY range of motion normal, Motor strength normal, no cyanosis, no edema.
LOWER EXTREMITY range of motion normal, Motor strength normal, no cyanosis, no edema.
NEURO Speech normal, No focal motor deficits, Sai coma scale 15, Memory normal, Cranial Nerves intact to screening exam.
SKIN skin warm, dry, and normal in color.
PLAN
Administer intravenous fluids for alcohol intoxication.
Monitor the patients condition and provide support for potential rehab consideration.
Arrange for safe transportation home with his girlfriend or sister once medically cleared.
SOCIAL HISTORY
The patient reports daily alcohol consumption. He lives with his girlfriend and mentions his sister as a possible source of support for transportation.
DIFFERENTIAL DIAGNOSIS
The Differential Diagnosis includes, in no particular order and is not limited to:
1. Alcohol use disorder
2. Alcohol intoxication
3. Alcohol withdrawal syndrome
4. Depression
5. Anxiety disorder
6. Substance use disorder
7. Nutritional deficiencies secondary to alcohol use
8. Liver dysfunction
9. Gastrointestinal bleeding
10. Cardiomyopathy
CARE-UPDATE
06/25/25 - 23:26
The patient is awake and alert, expressing remorse for the current situation. He is unwilling to return to inpatient rehab, stating he 'cannot go back to rehab.' However, the patient commits to starting attendance at Alcoholics Anonymous (AA)
meetings. He is deemed suitable for outpatient management.
Disposition:
SUMMARY OF ENCOUNTER
The patient is a 49-year-old male who presents to the emergency department with concerns of alcohol intoxication. He admits to frequent drinking and expresses regret, indicating a desire to become sober again. The patient has a history of attending
rehab and achieving sobriety, but he has resumed drinking. He expressed an unwillingness to return to inpatient rehab but agreed to resume attending Alcoholics Anonymous (AA) meetings. There are no acute medical complaints at this time, and the
patient is being monitored for alcohol intoxication.
DISPOSITION
Discharge.
ASSESSMENT
The patient is currently experiencing alcohol intoxication and has a history of alcohol use disorder. He expresses a desire to regain sobriety and plans to attend AA meetings. The patient is suitable for outpatient management.
EMERGENCY TREATMENTS ADMINISTERED
Intravenous fluids were administered for alcohol intoxication.
PLAN
Monitor the patients condition and provide support for potential rehab consideration. Arrange safe transportation home once he is medically cleared.
PATIENT EDUCATION AND COUNSELING
Discussed the importance of attending AA meetings and seeking support for alcohol use disorder. Recommended exploring outpatient rehabilitation options given his reluctance for inpatient care.
FOLLOW-UP INSTRUCTIONS
The patient was instructed to follow up with his outpatient care provider and continue attending AA meetings.
MEDICATION RECONCILIATION
Intravenous fluids administered for alcohol intoxication during the visit.
MEDICAL DECISION MAKING
1. Number and Complexity of Problems Addressed: Chronic conditions affecting care include alcohol use disorder and alcohol intoxication. Differential diagnosis includes alcohol withdrawal syndrome, depression, anxiety disorder, substance use
disorder, nutritional deficiencies secondary to alcohol use, liver dysfunction, gastrointestinal bleeding, and cardiomyopathy.
2. Data:
Category 1
No laboratory tests were indicated or reviewed during this encounter.
Category 3
The patient�s management was discussed with his girlfriend regarding transportation home.
3. Risk: Prescription medication was not required. The patient expressed a commitment to self-manage through AA meetings and did not exhibit acute medical issues needing immediate intervention or admission. Consideration of Admission/Observation:
Escalation of care including admission/observation was considered given the complexity and risk of the patients presenting complaint, but ultimately, the patient is deemed safe for outpatient management with close follow-up. Reasoning: The patient�s
symptoms are well controlled, reexamination is reassuring, and the patient is agreeable with discharge and is deemed reliable for follow-up.
DIAGNOSIS
- Alcohol intoxication (F10.129)
- Alcohol use disorder (F10.20)
Past History
Past History
ED Past Medical History: None; Negative Asthma, HTN or Hypercholesterolemia
ED Past Surgical History: Other (Hernia repair)
Social History
Tobacco: Non-smoker
Alcohol: Daily (Scotch one bottle)
Personal:
Living: with family
Phy Exam
Physical Exam
Physical Exam:
.
Scores
Withdrawal Assessment of Alcohol
Withdrawal Assessment Completed?: Not applicable
Course
Vital Signs
Initial and Last Documented VS:
Initial Vital Signs
Temp Pulse Resp BP Pulse Ox
97.7 F 90 18 145/95 100
06/25/25 20:55 06/25/25 20:55 06/25/25 20:55 06/25/25 20:55 06/25/25 20:55
Last Documented Vital Signs
Temp Pulse Resp BP Pulse Ox
97.7 F 86 18 145/95 100
06/25/25 20:55 06/25/25 23:10 06/25/25 20:55 06/25/25 20:55 06/25/25 20:55
*Pulse Oximetry
SaO2: 100
Oxygen Mode of Delivery: Room air
Patient hypoxic: no
*Critical Care Note
Total Time (30-74mins, 75-104mins- exclusive of procedures): Not Applicable
ED Attending Note
-
Portions of this chart may have been created with voice recognition software.� Occasional wrong word or��sound alike� substitutions may have occurred due to the inherent limitations of voice recognition software.
Discharge Plan
Departure
Patient Disposition: Home (Routine Discharge)
Date of Disposition: 06/25/25
Time of Disposition: 23:29
Patient with high blood pressure during this ER visit?: Yes
Discharge Problem:
Acute alcohol intoxication
Instructions: Alcohol intoxication - ED discharge instructions, BLOOD PRESSURE
Prescriptions:
No Action
trazodone 50 mg tablet
100 mg PO HSPRN PRN (Reason: insomnia)
cetirizine [Zyrtec] 10 mg Tablet
10 mg PO DAILY PRN (Reason: allergies)
naltrexone 50 mg tablet
50 mg PO DAILY
propranolol 10 mg tablet
10 mg PO TID
escitalopram oxalate 10 mg tablet
10 mg PO DAILY
Referrals:
Aurelia Adams CRNP [Family Provider, Internal Medicine]
Activity Restrictions/Additional Instructions:
Please stop drinking alcohol. Please consider inpatient rehab or at least going back to AA. Return immediately for intractable vomiting or any other concerns.
Interventions
Interventions:
*Risk Screen - Suicide Last Done: 06/25/25 20:56
*General Assessment Last Done: 06/25/25 20:52
*Neglect/Abuse Screening Last Done: 06/25/25 20:56
*ED- Fall Risk Assessment Last Done: 06/25/25 21:53
*ED COVID-19 Vaccine History Last Done: 06/25/25 21:53
ED- Neurological Assessment Last Done: 06/25/25 20:52
ED-Psychological Assessment Last Done: 06/25/25 20:52
Discharge Date and Time
Print Language: SAUDI ARABIAN
[2025-06-25 23:40] VITALS: BP 140/94
== END 2025-06-25 23:52 | disposition home or self-care (01) ==
LOC: EMR 20:44
PROVIDERS: EMERGENCY PHYSICIAN Emergency Medicine; FAMILY PHYSICIAN Nurse Practitioner Family
DX: F10.129 Alcohol abuse with intoxication, unspecified (principal); Y90.9 Presence of alcohol in blood, level not specified
CPT/HCPCS: 99283

== ENCOUNTER 2025-08-21 13:19 | Emergency (ER) | payer OTHER, SELFPAY ==
[2025-08-21 13:20] VITALS: BP 130/93
[2025-08-21 15:37] VITALS: BMI 27.6
[2025-08-21 15:38] VITALS: BP 128/88
--- NOTE | 2025-08-21 15:46 | ED.GENMED ---
History of Present Illness
General
Chief Complaint: Alcohol Problem
Source: patient
Exam Limitations: none
Time Seen by Provider: 08/21/25 15:34
History of Present Illness
History of Present Illness:
49-year-old male history of hypertension, anxiety and alcohol use disorder presents with mother stating that he drank himself facility and has also been sick for the past 3 to 4 days. He notes he has a productive cough. No known fever. He has
been drinking half a bottle to a bottle of Brian. Last drink was this morning. He has not had withdrawal seizures in the past. He has been involved with AA. Is been in contact with the [facility] in the past.
Past History
Past History
ED Past Medical History: None; Negative Asthma, HTN or Hypercholesterolemia
ED Past Surgical History: Other (Hernia repair)
Social History
Tobacco: Non-smoker
Alcohol: Daily (Scotch one bottle)
Personal:
Living: with family
Phy Exam
Physical Exam
Physical Exam:
General: Well-appearing male no acute respiratory distress
HEENT normal cephalic atraumatic
Heart: Regular rate and rhythm
Lungs: Clear no wheeze
Abdomen soft nontender
Neurologic exam: No diaphoresis no tremor alert and oriented conversing appropriate
Scores
Withdrawal Assessment of Alcohol
Withdrawal Assessment Completed?: No
Course
Orders/Labs/Results
Orders:
Orders
08/21/25 15:45
0.9% Sodium Chloride 1000 ml [Nss] 1,000 ml IV BOLUS
CR Chest - 2 Views Urgent
Comment:
Reason For Exam: cough
08/21/25 15:56
Alcohol Urgent
COVID-19 Antigen Urgent
Source: Nasal Swab
Complete Blood Count/With Diff Urgent
Comprehensive Metabolic Panel Urgent
Lipase Urgent
Influenza A+B Rapid Molecular Urgent
[place] Source: Nasal Swab
Specimen Description:
08/21/25 16:26
Crisis Consult Urgent
Reason for Consult: si
08/21/25 18:01
Midazolam HCl [Versed] 2 mg IV NOW STA
08/21/25 18:03
Add On- LAB Urgent
Tests Added?: alcohol level
08/21/25 19:21
Amoxicillin 875 mg/Clav 125 mg [Augmentin 875 mg/125 mg] 1 tablet PO NOW STA
Doxycycline [Vibramycin] 100 mg PO NOW STA
Ondansetron Injectable [Zofran] 4 mg IV NOW STA
08/21/25 19:40
Acetaminophen [Tylenol] 650 mg PO NOW STA
Famotidine [Pepcid] 20 mg IV NOW STA
Abnormal Lab Results
08/21/25
15:56
MCH 31.3 H pg
(27.0-31.0)
AST 72 H U/L
(17-59)
ALT 51 H U/L
(0-50)
08/21/25 15:56
08/21/25 15:56
Vital Signs
Initial and Last Documented VS:
Initial Vital Signs
Temp Pulse Resp BP Pulse Ox
97.7 F 95 18 130/93 99
08/21/25 13:20 08/21/25 13:20 08/21/25 13:20 08/21/25 13:20 08/21/25 13:20
Last Documented Vital Signs
Temp Pulse Resp BP Pulse Ox
98.2 F 84 20 119/94 99
08/21/25 21:16 08/21/25 21:16 08/21/25 21:16 08/21/25 21:16 08/21/25 21:16
MDM/Problems Addressed
Differential Diagnosis Includes:
Patient here for multiple reasons one of the which is alcohol use disorder. He has been on a binge. He also notes he is with an illness. Consider viral illness versus pneumonia versus orchitis with COVID or flu. Will check chest x-ray test for
COVID and flu. Check labs and hydrate. [facility] contacted.
*Pulse Oximetry
SaO2: 100
Oxygen Mode of Delivery: Room air
Patient hypoxic: no
*Critical Care Note
Total Time (30-74mins, 75-104mins- exclusive of procedures): Not Applicable
Update Note
Update Note:
Patient reevaluated multiple times. Labs reviewed alcohol level is 317. Seen by crisis. Crisis was able to get him into a detox facility for tomorrow morning. Family members all in agreement. No indication for continued keep him in the hospital
at this point. Stable for discharge. He will be attending detox facility tomorrow they will pick him up at 1030
ED Attending Note
-
Portions of this chart may have been created with voice recognition software.� Occasional wrong word or��sound alike� substitutions may have occurred due to the inherent limitations of voice recognition software.
Discharge Plan
Departure
Patient Disposition: Home (Routine Discharge)
Date of Disposition: 08/21/25
Time of Disposition: 23:39
Patient with high blood pressure during this ER visit?: No
Discharge Problem:
Alcohol abuse
Prescriptions:
No Action
trazodone 50 mg tablet
100 mg PO HSPRN PRN (Reason: insomnia)
cetirizine [Zyrtec] 10 mg Tablet
10 mg PO DAILY PRN (Reason: allergies)
naltrexone 50 mg tablet
50 mg PO DAILY
propranolol 10 mg tablet
10 mg PO TID
escitalopram oxalate 10 mg tablet
10 mg PO DAILY
Referrals:
Aurelia Adams CRNP [Family Provider, Internal Medicine]
Activity Restrictions/Additional Instructions:
You will be getting picked up tomorrow morning at 1030 to help go to your detox facility. Return if needed otherwise
Interventions
Interventions:
*Risk Screen - Suicide Last Done: 08/21/25 13:20
*General Assessment Last Done: 08/21/25 13:20
*Neglect/Abuse Screening Last Done: 08/21/25 13:20
*ED- Fall Risk Assessment Last Done: 08/21/25 19:22
*ED COVID-19 Vaccine History Last Done: 08/21/25 13:20
*ED Influenza Vaccine History Last Done: 08/21/25 13:20
ED- Neurological Assessment Last Done: 08/21/25 19:22
ED-Psychological Assessment Last Done: 08/21/25 19:22
Discharge Date and Time
Print Language: BOLIVIAN
[2025-08-21] MEDS: NSS 1000 IV (15:56)
[2025-08-21 16:12] LABS: Hematocrit 45.3 % (39.0-52.0); Hemoglobin 15.9 g/dL (13.0-18.0); Mean Corp Hgb Conc. 35.1 g/dL (33.0-37.0); Mean Corpuscular Volume 89.2 fL (80.0-94.0); Nucleated Red Blood Cells % 0 % (-); Platelet Count 373 10^3/uL (130-400); Red Cell Dist. Width 13.5 % (11.5-14.5)
[2025-08-21 16:26] LABS: ALT (SGPT) 51 U/L (0-50); AST (SGOT) 72 U/L (17-59); Albumin 4.8 g/dl (3.5-5.0); Alkaline Phosphatase 112 U/L (38-126); Blood Urea Nitrogen 12 mg/dl (9-20); Calcium 9.4 mg/dl (8.4-10.2); Carbon Dioxide 24 mmol/L (22-30); Chloride 104 mmol/L (98-107); Estimated Creatinine Clearance > 125 ml/min; Glucose 85 mg/dl (70-99); Lipase 209 U/L (23-300); Potassium 4.4 mmol/L (3.5-5.1); Sodium 142 mmol/L (135-145); Total Protein 8.1 g/dl (6.3-8.2); eGFR > 60.00
[2025-08-21 16:38] LABS: COVID-19 Antigen Negative (Negative)
[2025-08-21 17:50] VITALS: BP 129/91
[2025-08-21] MEDS: VERSED 2 MG IV (18:05)
[2025-08-21 19:22] VITALS: BP 132/94
[2025-08-21] MEDS: AUGMENTIN 875 MG/125 MG 1 TABLET PO (19:40)
[2025-08-21] MEDS: VIBRAMYCIN 100 MG PO (19:40)
[2025-08-21] MEDS: ZOFRAN 4 MG IV (19:40)
[2025-08-21] MEDS: PEPCID 20 MG IV (19:47)
[2025-08-21] MEDS: TYLENOL 650 MG PO (19:47)
[2025-08-21 21:16] VITALS: BP 119/94
[2025-08-21 21:23] VITALS: BMI 27.1
[2025-08-21 23:47] VITALS: BP 130/100
== END 2025-08-22 00:08 | disposition home or self-care (01) ==
LOC: EMR 13:19
PROVIDERS: Physician Assistant; EMERGENCY PHYSICIAN Emergency Medicine; FAMILY PHYSICIAN Nurse Practitioner Family
DX: F10.10 Alcohol abuse, uncomplicated (principal)
CPT/HCPCS: 99283; 96374; 96375; 96361; 71046; 80053; 82077; 83690; 85025; 87502; 87811

== ENCOUNTER 2025-09-07 21:32 | Emergency (ER) | payer OTHER, SELFPAY ==
[2025-09-07 21:44] VITALS: BP 133/100
--- NOTE | 2025-09-07 23:12 | ED.GENMED ---
History of Present Illness
General
Chief Complaint: Suicidal Ideation
Time Seen by Provider: 09/07/25 22:56
History of Present Illness
History of Present Illness:
49-year-old male with history of alcohol abuse presenting for alcohol abuse. Patient allegedly placed under a 302 by his girlfriend. Patient had made some statements to his girlfriend regarding wanting to hurt himself. Police were called and
patient brought to the hospital. Patient recently seen 08/21 for alcohol abuse, arrange for detox. Notes that he has been sober for the past 10 days. Does admit to a lot of stress at home, however denies any SI or HI. Denies acute medical
complaints.
Past History
Past History
ED Past Medical History: None; Negative Asthma, HTN or Hypercholesterolemia
ED Past Surgical History: Other (Hernia repair)
Social History
Tobacco: Non-smoker
Alcohol: Daily (Scotch one bottle)
Personal:
Living: with family
Phy Exam
Physical Exam
Physical Exam:
General: Well-appearing, no clinical signs of dehydration, nontoxic and in no acute distress
HEENT: protecting airway
Neck: appears supple
CV: Normal heart rate, regular rhythm, no evidence of cyanosis
Resp: No accessory muscle use, no increased work of breathing
Abd: No distention
Extremities: No deformities, no swelling, no erythema, pulses and sensation intact
Neuro: alert, no focal neurologic deficit
: deferred
Rectal: deferred
Psych: Normal affect
Skin: Intact
Course
Orders/Labs/Results
Orders:
Orders
09/07/25 22:06
Crisis Consult Urgent
Reason for Consult: possible SI
09/07/25 23:31
Alcohol Urgent
09/07/25 23:41
Urine Drug Abuse Screen Urgent
Date Specimen was Collected: 09/07/25
Time Specimen was Collected: 23:40
09/08/25 04:14
Acetaminophen [Tylenol] 1,000 mg PO NOW STA
09/08/25 04:21
Ondansetron Orally Disint [Zofran Odt (Orally Disintegrating)] 4 mg .ROUTE .STK-MED ONE
Ondansetron Orally Disint [Zofran Odt (Orally Disintegrating)] 4 mg PO NOW STA
09/08/25 04:55
Lorazepam [Ativan] 1 mg PO NOW STA
Vital Signs
Initial and Last Documented VS:
Initial Vital Signs
Pulse Resp BP
81 20 133/100
09/07/25 21:44 09/07/25 21:44 09/07/25 21:44
Last Documented Vital Signs
Temp Pulse Resp BP
98.1 F 81 20 133/100
09/07/25 21:45 09/07/25 21:44 09/07/25 21:44 09/07/25 21:44
MDM/Problems Addressed
MDM/Problems Addressed:
49-year-old male with history of alcohol abuse presenting for 302 for self-harm statements per girlfriend. Vital signs are normal.
Patient resting comfortably on arrival, no acute complaints. Denies SI or HI. Patient does admit to alcohol abuse, recent detox program. Crisis consulted with plan for telepsych evaluation
01:20 -patient's 302 upheld. Pending placement to psychiatric facility
*Pulse Oximetry
Patient hypoxic: no
*Critical Care Note
Total Time (30-74mins, 75-104mins- exclusive of procedures): Not Applicable
ED Attending Note
-
Portions of this chart may have been created with voice recognition software.� Occasional wrong word or��sound alike� substitutions may have occurred due to the inherent limitations of voice recognition software.
Discharge Plan
Departure
Patient Disposition: Psych Facility
Date of Disposition: 09/08/25
Time of Disposition: 01:31
Patient with high blood pressure during this ER visit?: Yes
Condition: Fair
Discharge Problem:
Alcohol abuse, Suicidal thoughts
Prescriptions:
No Action
trazodone 50 mg tablet
100 mg PO HSPRN PRN (Reason: insomnia)
cetirizine [Zyrtec] 10 mg Tablet
10 mg PO DAILY PRN (Reason: allergies)
naltrexone 50 mg tablet
50 mg PO DAILY
propranolol 10 mg tablet
10 mg PO TID
escitalopram oxalate 10 mg tablet
10 mg PO DAILY
amoxicillin-pot clavulanate 875-125 mg tablet
1 tab PO BID Qty: 14 0RF
doxycycline hyclate 100 mg capsule
100 mg PO BID Qty: 14 0RF
Referrals:
UNKNOWN - PT NOT,INTER[facility] [Family Provider]
Interventions
Interventions:
*Risk Screen - Suicide Last Done: 09/07/25 21:45
*General Assessment Last Done: 09/07/25 21:45
*Neglect/Abuse Screening Last Done: 09/07/25 21:45
*ED- Fall Risk Assessment Last Done: 09/07/25 22:15
*ED COVID-19 Vaccine History Last Done: 09/07/25 22:15
*ED Influenza Vaccine History Last Done: 09/07/25 22:15
ED-Psychological Assessment Last Done: 09/07/25 21:49
Discharge Date and Time
Print Language: AUSTRALIAN
[2025-09-08] MEDS: TYLENOL 1000 MG PO (04:17)
[2025-09-08] MEDS: ZOFRAN ODT (ORALLY DISINTEGRATING) 4 MG PO ×2 (04:21→08:13)
[2025-09-08] MEDS: ATIVAN 1 MG PO ×2 (04:59→09:41)
--- NOTE | 2025-09-08 08:21 | ED.GENMED ---
History of Present Illness
General
Chief Complaint: Suicidal Ideation
Time Seen by Provider: 09/07/25 22:56
Past History
Past History
ED Past Medical History: None; Negative Asthma, HTN or Hypercholesterolemia
ED Past Surgical History: Other (Hernia repair)
Social History
Tobacco: Non-smoker
Alcohol: Daily (Scotch one bottle)
Personal:
Living: with family
Course
Orders/Labs/Results
Orders:
Orders
09/07/25 22:06
Crisis Consult Urgent
Reason for Consult: possible SI
09/07/25 23:31
Alcohol Urgent
09/07/25 23:41
Urine Drug Abuse Screen Urgent
Date Specimen was Collected: 09/07/25
Time Specimen was Collected: 23:40
09/08/25 04:14
Acetaminophen [Tylenol] 1,000 mg PO NOW STA
09/08/25 04:21
Ondansetron Orally Disint [Zofran Odt (Orally Disintegrating)] 4 mg .ROUTE .STK-MED ONE
Ondansetron Orally Disint [Zofran Odt (Orally Disintegrating)] 4 mg PO NOW STA
09/08/25 04:55
Lorazepam [Ativan] 1 mg PO NOW STA
09/08/25 08:09
Ondansetron Orally Disint [Zofran Odt (Orally Disintegrating)] 4 mg PO NOW STA
Vital Signs
Initial and Last Documented VS:
Initial Vital Signs
Pulse Resp BP
81 20 133/100
09/07/25 21:44 09/07/25 21:44 09/07/25 21:44
Last Documented Vital Signs
Temp Pulse Resp BP
98.1 F 81 20 133/100
09/07/25 21:45 09/07/25 21:44 09/07/25 21:44 09/07/25 21:44
Update Note
Update Note:
Pt c/o nausea....noted to be awake, alert, in nad. No abd pain, no vomiting, Dalton zofran at 4am en helped him. Will remedicate and monitor.
ED Attending Note
-
Portions of this chart may have been created with voice recognition software.� Occasional wrong word or��sound alike� substitutions may have occurred due to the inherent limitations of voice recognition software.
Discharge Plan
Departure
Patient Disposition: Psych Facility
Date of Disposition: 09/08/25
Time of Disposition: 01:31
Patient with high blood pressure during this ER visit?: Yes
Condition: Fair
Discharge Problem:
Alcohol abuse, Suicidal thoughts
Prescriptions:
No Action
trazodone 50 mg tablet
100 mg PO HSPRN PRN (Reason: insomnia)
cetirizine [Zyrtec] 10 mg Tablet
10 mg PO DAILY PRN (Reason: allergies)
naltrexone 50 mg tablet
50 mg PO DAILY
propranolol 10 mg tablet
10 mg PO TID
escitalopram oxalate 10 mg tablet
10 mg PO DAILY
amoxicillin-pot clavulanate 875-125 mg tablet
1 tab PO BID Qty: 14 0RF
doxycycline hyclate 100 mg capsule
100 mg PO BID Qty: 14 0RF
Referrals:
UNKNOWN - PT NOT,INTER[facility]IE[facility] [Family Provider]
Interventions
Interventions:
*Risk Screen - Suicide Last Done: 09/07/25 21:45
*General Assessment Last Done: 09/07/25 21:45
*Neglect/Abuse Screening Last Done: 09/07/25 21:45
*ED- Fall Risk Assessment Last Done: 09/07/25 22:15
*ED COVID-19 Vaccine History Last Done: 09/07/25 22:15
*ED Influenza Vaccine History Last Done: 09/07/25 22:15
ED-Psychological Assessment Last Done: 09/07/25 21:49
Discharge Date and Time
Print Language: ROMANSH
== END 2025-09-08 10:30 ==
LOC: EMR 21:32
PROVIDERS: Student in an Organized Health Care Education/Training Program; EMERGENCY PHYSICIAN Emergency Medicine
DX: F10.10 Alcohol abuse, uncomplicated (principal); R45.851 Suicidal ideations; F32.A Depression, unspecified; F19.10 Other psychoactive substance abuse, uncomplicated; I10 Essential (primary) hypertension; Z79.899 Other long term (current) drug therapy; Z91.148 Patient's other noncompliance with medication regimen for other reason; Z91.52 Personal history of nonsuicidal self-harm
CPT/HCPCS: 99283; 80306; 82077